=== PATIENT | male | born 1945 | race Caucasian/White ===

== ENCOUNTER 2018-04-22 17:29 | Inpatient (IN) | payer OTHER ==
--- NOTE | 2018-04-22 17:32 | PDOC ---
History of Present Illness - General Chief Complaint: Respiratory Stated Complaint: COUGH, EDEMA TO LEGS Time Seen by Provider: 04/22/18 17:30 History Source: Patient, Spouse ( present for interview.), Old Records, Primary Care Provider (Office note and EKG from Dr. Stroud's office.) Exam Limitations: No Limitations - History of Present Illness Initial Comments: 69 y/o male presenting to [facility] on referral from Dr. Hartman office (in same building) complaining of a three week history of shortness of breath, fatigue, and bilateral lower extremity swelling. Symptoms started just prior to leaving for a three week trip to [place]. First noticed symmetrical bilateral lower extremity swelling without pain or overlying skin lesions. States he began having difficulty laying flat at night while sleeping; started sleeping upright in bed. Became easily fatigable with minimal exertion. Endorses paroxysmal nocturnal dyspnea and HR consistently >90 bpm. Denies chest pain, fever, chills , or diaphoresis. Denies h/o of similar in the past. No prior cardiac history; Was last evaluated by a bee tender approx. 10 years ago; believes he had a normal stress test. Exercises regularly with biking and running. Endorses cough productive of green sputum. Took Ciprofloxacin, which was prescribed as "in case antibiotic" for trip. States the cough persisted but the green sputum production stopped. Returned from [facility] earlier today. Traveled to [facility], various parts of [facility], and [facility]. Was compliant with Mephaquin malaria prophylaxis. Received Yellow Fever vaccination. Did not seek medical attention while abroad because he did not want to leave the tour. Was evaluated by PCP prior to arrival to the ER. EKG obtained in clinic showed a new onset LBBB when compared to previous EKG dated 12 Jan 2016. PCP: Dr. Michael Stroud Social Hx: - EtoH: 1-2 drinks per night - Tobacco: Remote h/o of smoking. Approx. 10 pack years. - Street Drugs: Denies. Medical Hx: - Crohns Disease - Melanoma on L arm - Anemia, type unknown - GERD - Osteoporosis Surgical Hx: - Tonsillectomy Past History - Past Medical History Allergies/Adverse Reactions: Allergies Allergy/AdvReac Type Severity Reaction Status Date / Time Penicillins Allergy Mild Hives Verified 04/22/18 17:32 grass pollen-november Allergy Mild SNEEZING Uncoded 04/22/18 17:32 *RETIRED-02/12/12 Home Medications: Ambulatory Orders Calcium [Natural Calcium] 1,200 mg PO DAILY 01/05/15 Cholecalciferol (Vitamin D3) [Vitamin D] 3,000 unit PO DAILY 01/05/15 Famotidine [Pepcid] 40 mg PO DAILY 01/05/15 Loratadine [Claritin -] 10 mg PO DAILY 01/05/15 Cyanocobalamin [Vitamin B12 -] 1,000 mcg PO DAILY 04/12/16 Anemia: No Asthma: No Cancer: Yes (SKIN CANCER) Cardiac Disorders: No CVA: No COPD: No CHF: No Dementia: No Diabetes: No GI Disorders: Yes (CROHN'S DISEASE GERD) Disorders: No HTN: No Hypercholesterolemia: No Liver Disease: No Seizures: No Thyroid Disease: No - Surgical History Abdominal Surgery: No Appendectomy: No Cardiac Surgery: No Cholecystectomy: No Lung Surgery: No Neurologic Surgery: No Orthopedic Surgery: No - Suicide/Smoking/Psychosocial Hx Smoking History: Former smoker Have you smoked in the past 12 months: No Number of Cigarettes Smoked Daily: 0 If you are a former smoker, when did you quit?: 1975 Hx Alcohol Use: Yes Drug/Substance Use Hx: No Substance Use Type: Alcohol Hx Substance Use Treatment: No Review of Systems - Review of Systems Able to Perform ROS?: Yes Comments:: In addition to that documented in the HPI above, the additional ROS was obtained : Constitutional: Denies fevers or chills Eyes: Denies vision changes ENMT: Denies sore throat CV: Denies chest pain Resp: Per HPI GI: Denies vomiting or diarrhea : Denies painful urination MSK: Denies recent trauma Skin: Denies new rashes Neuro: Denies new numbness or tingling or weakness Endocrine: Denies polyuria Heme: Denies bleeding disorders *Physical Exam - Physical Exam Comments: Constitutional: Well-developed, well-nourished male in no acute distress or obvious discomfort. Found semi-fowlers in hospital bed. Alert and oriented x4. Answered all questions appropriately and completely. Speech was non-labored, non -pressured. HEENT: Normocephalic. No obvious external signs of trauma. Hearing grossly normal. No nasal discharge. Neck is supple, trachea is midline. JVD more pronounced on right side. Cardiovascular: Regular rate and regular rhythm. No murmur, rubs, clicks, or gallops. Peripheral pulses: Radial pulses full. Respiratory: Mildly tachypneic at rest. Breathing unlabored. Equal chest rise and fall. Clear to auscultation bilaterally. No stridor, no wheezing, no rhonchi. Gastrointestinal: abdomen is soft, non-tender, non-distended. No pulsatile masses. No fluid wave. No overlying skin lesions or obvious signs of trauma. Neuro: Alert and oriented. Moving all four extremities spontaneously. Skin: Warm and dry. 3+ pitting pretibial edema to knee bilaterally. No point tenderness or overlying skin lesions. No bruising, rashes. Psych: Affect: appropriate. Mood: normal. ED Treatment Course - LABORATORY CBC & Chemistry Diagram: 04/22/18 17:30 04/22/18 17:30 Medical Decision Making - Medical Decision Making *Reviewed vital signs, nursing notes, and prior visit documentation (if available). 69 y/o male complaining of orthopnea, paroxysmal nocturnal dyspnea, bilateral pretibial edema, and decreased exercise intolerance. No prior cardiac or clotting history. Afebrile. Vitals remarkable for borderline tachycardia; no hypertension. Physical exam as described above. Suspect acute CHF. Low suspicion for DVT/PE, cardiac arrhythmia, pneumonia, pericardial effusion. Will obtain CBC, CMP, BNP, Cardiac Profile, PT/INR, Mag, D-Dimer, EKG, and CXR to further evaluated. Ordered furosemide for symptom relief. Dr. Stroud requested bilateral lower extremity doppler U/S to evaluate for DVT. Ordered. Vascular U/S unremarkable for DVT. CXR revealed possible consolidation in left middle lobe as well as mild blunting of right and left costophrenic angles per ED wet read. Awaiting official radiology report. Ordered dose of Doxycycline for possible community acquired pneumonia. 04/22/18 19:12 Pt signed out to night attending. Lab and CXR results pending. *DC/Admit/Observation/Transfer Diagnosis at time of Disposition: Leg swelling - Discharge Dispostion Condition at time of disposition: Stable - Referrals Referrals: Michael Stroud MD [Primary Care Provider] - - Patient Instructions - Post Discharge Activity
[2018-04-22 17:39] VITALS: BMI 26.7
[2018-04-22] MEDS ORDERED: FUROSEMIDE 40 MG/4 ML INJECTABLE VIAL IVPUSH ONE (18:03)
[2018-04-22] MEDS ORDERED: FUROSEMIDE 40 MG/4 ML INJECTABLE VIAL ONE (18:46)
--- NOTE | 2018-04-22 18:46 | PDOC ---
Attending Attestation - Resident Resident Name: Nishant - ED Attending Attestation I have performed the following: I have examined & evaluated the patient, The case was reviewed & discussed with the resident, I agree w/resident's findings & plan, Exceptions are as noted - HPI HPI: 04/22/18 18:38 72 M with h/o Crohn's presenting with 3 weeks of lower extremity swelling and PAGE. Pt states that he just returned from a trip to [facility]. He states that while there, he caught an upper respiratory infection, and since then he has had progressively worsening PAGE and orthopnea. He also reports bilateral leg swelling for several weeks. Pt states the flight to [facility] was approx 15 hours. However, he noticed the swelling in his legs before the trip. Pt denies any F/ C. Denies any chest pain. Denies N/V. Denies diaphoresis. - Physicial Exam PE: 04/22/18 18:40 "GENERAL: Awake, alert, and fully oriented, in no acute distress. HEAD: No signs of trauma EYES: PERRLA, EOMI, sclera anicteric, conjunctiva clear ENT: Auricles normal inspection, hearing grossly normal, nares patent, oropharynx clear without exudates. Moist mucosa NECK: Nontender, no stepoffs, Normal ROM, supple, no lymphadenopathy, JVD, or masses LUNGS: Breath sounds equal, clear to auscultation bilaterally. No wheezes, and no crackles HEART: Regular rate and rhythm, normal S1 and S2, no murmurs, rubs or gallops ABDOMEN: Soft, nontender, normoactive bowel sounds. No guarding, no rebound. No masses EXTREMITIES: +2 PE BLE, symmetric legs, no palpable cords, no calf tenderness NEUROLOGICAL: Cranial nerves II through XII intact. 5/5 strength and sensation in all extremities, Normal speech, normal gait, normal cerebellar function SKIN: Warm, Dry, normal turgor, no rashes or lesions noted." - Medical Decision Making 04/22/18 18:41 72 M with PAGE and BLE swelling. Clinical concerning for CHF. Will need to evaluate for FL as well. Also consider PNA. Pt with recent plane flight to [facility] and BLE swelling, so will r/o PE with ddimer. However, pt reports that leg swelling occurred prior to his trip. - Labs, trop, BNP, ddimer - CXR - LE dopplers - Consider CTA chest 04/22/18 19:01 Dopplers negative EKG with new TWI in lateral leads. Pt denies chest pain. CXR with ? consolidation. Given cough and URI like symptoms, will empirically treat for CAP. Labs pending. Pt signed out to oncoming attending, pending labs, possible CTA to r/o PE, and admission to hospital.
[2018-04-22 18:54] LABS: BASO % 0.4 % (0-2.0); EOS % 2.9 % (0-4.5); HEMATOCRIT 36.9 % (35.4-49); HEMOGLOBIN 11.9 GM/dl (11.7-16.9); LYMPH % 9.9 % (8-40); MCH 29.4 pg (25.7-33.7); MCHC 32.3 g/dl (32.0-35.9); MEAN CELL VOLUME 91.2 fl (80-96); MEAN PLT VOLUME 11.1 fl (7.5-11.1); MONO % 8.7 % (3.8-10.2); NEUT % 78.1 % (42.8-82.8); PLATELET COUNT 262 K/MM3 (134-434); RBC 4.05 M/mm3 (4.00-5.60); RDW 14.8 % (11.9-15.9); WHITE BLOOD COUNT 9.8 K/mm3 (4.0-10.8)
[2018-04-22 18:59] LABS: INR 1.21 (0.82-1.09); PROTHROMBIN TIME (PATIENT) 13.5 SEC (10.2-13.0)
[2018-04-22] MEDS ORDERED: DOXYCYCLINE HYCLATE 100 MG CAPSULE PO ONE ×2 (18:59→19:20)
[2018-04-22 19:10] LABS: ALBUMIN 2.9 g/dl (3.5-5.0); ALK PHOS 63 U/L (32-92); ANION GAP 6 MMOL/L (8-16); BLOOD UREA NITROGEN 20 mg/dl (7-18); CALCIUM 8.2 mg/dl (8.4-10.2); CHLORIDE 108 mmol/L (98-107); CO2 22 mmol/L (22-28); CREATININE 1.3 mg/dl (0.6-1.3); GLUCOSE,RANDOM 93 mg/dl (74-106); MAGNESIUM 1.7 mg/dL (1.8-2.4); POTASSIUM 4.1 mmol/L (3.5-5.1); SGOT/AST 44 U/L (10-42); SGPT/ALT 64 U/L (10-40); SODIUM 136 mmol/L (136-145); TOT PROT 5.5 g/dl (6.4-8.3)
--- NOTE | 2018-04-22 19:50 | PDOC ---
*Physical Exam - Vital Signs Last Vital Signs Temp Pulse Resp BP Pulse Ox 97.4 F L 95 H 20 121/82 97 04/22/18 17:30 04/22/18 17:30 04/22/18 17:30 04/22/18 17:30 04/22/18 17:30 ED Treatment Course - LABORATORY CBC & Chemistry Diagram: 04/22/18 17:30 04/22/18 17:30 - ADDITIONAL ORDERS Additional order review: Laboratory Results 04/22/18 04/22/18 04/22/18 17:30 17:30 17:30 PT with INR INR D-Dimer 926 H Sodium Potassium Chloride Carbon Dioxide Anion Gap BUN Creatinine Creat Clearance w eGFR Random Glucose Calcium Magnesium Total Bilirubin AST ALT Alkaline Phosphatase Creatine Kinase 162 Creatine Kinase Index 3.8 CK-MB (CK-2) 6.3 H Troponin I 0.04 D B-Natriuretic Peptide Total Protein Albumin 04/22/18 04/22/18 04/22/18 17:30 17:30 17:30 PT with INR 13.5 H INR 1.21 D-Dimer Sodium 136 Potassium 4.1 Chloride 108 H Carbon Dioxide 22 Anion Gap 6 L BUN 20 H Creatinine 1.3 Creat Clearance w eGFR 54.26 Random Glucose 93 D Calcium 8.2 L Magnesium 1.7 L Total Bilirubin 1.0 AST 44 H D ALT 64 H D Alkaline Phosphatase 63 Creatine Kinase Creatine Kinase Index CK-MB (CK-2) Troponin I B-Natriuretic Peptide 8146.3 H Total Protein 5.5 L Albumin 2.9 L 04/22/18 17:30 RBC 4.05 MCV 91.2 MCHC 32.3 RDW 14.8 D MPV 11.1 Neutrophils % 78.1 Lymphocytes % 9.9 D Monocytes % 8.7 Eosinophils % 2.9 D Basophils % 0.4 - Medications Given in the ED: ED Medications Discontinued Medications Generic Name Dose Route Start Last Admin Trade Name Freq PRN Reason Stop Dose Admin Doxycycline Hyclate 100 mg 04/22/18 18:59 04/22/18 19:27 Vibramycin - PO 04/22/18 19:00 100 mg ONCE ONE Administration Furosemide 40 mg 04/22/18 18:03 04/22/18 19:00 Lasix Injection - IVPUSH 04/22/18 18:04 40 mg ONCE ONE Administration Progress Note - Progress Note Progress Note: Care of this patient was transferred to nm from Dr. Clements at 1900 hrs. Patient is a 72-year-old male who recently returned from travels in [place] with dyspnea and shortness of breath. Patient's chest x-ray does show an infiltrate as well as some CHF. Patient's d-dimer and BNP is still pending. 19:45 Patient's d-dimer was 920 which is mildly elevated normal for his age is 720. However given the patient's underlying lung issues this most likely is secondary to that. Patient's medial and is elevated with a borderline creatinine I do not want to subject his kidneys to a dye load as we gave him Lasix which she is given a further dehydrate him elevate his BUNs even more. Patient's BNP was over 1800. Patient was given Lasix here in the ED Patient will be admitted to an inpatient bed under the hospitalist service. *DC/Admit/Observation/Transfer Diagnosis at time of Disposition: Leg swelling CHF (congestive heart failure) Qualifiers: Heart failure type: unspecified Heart failure chronicity: unspecified Qualified Code(s): I50.9 - Heart failure, unspecified Pneumonia Qualifiers: Pneumonia type: due to unspecified organism Laterality: left Lung location: lower lobe of lung Qualified Code(s): J18.1 - Lobar pneumonia, unspecified organism - Discharge Dispostion Condition at time of disposition: Stable Decision to Admit order: Yes - Referrals Referrals: Michael Stroud MD [Primary Care Provider] - - Patient Instructions - Post Discharge Activity
[2018-04-22] MEDS ORDERED: MAGNESIUM 1GM/D5W - 2 GM/200 ML IVPB IVPB ONE (20:24)
[2018-04-22] MEDS ORDERED: SODIUM CHLORIDE 500 ML IV STA (20:26)
[2018-04-22] MEDS ORDERED: MAGNESIUM SULF 50% (8.12 MEQ/2 ML-1 GM VIAL) IVPB ONE (20:30)
[2018-04-22] MEDS: HEPARIN NA (PORCINE) 5,000 UNITS/ML 1ML VIAL SQ SCH (22:42)
--- NOTE | 2018-04-22 23:49 | HP ---
CHIEF COMPLAINT: SOB, Cough, Fatigue, Lower Extremity Swelling PCP: Dr. Stroud HISTORY OF PRESENT ILLNESS: This is a 72 y/o man with a past medical history of Crohn's Disease, GERD, Anemia, Osteoporosis, Melanoma. Who presents to the ED sent in by his PMD for SOB, PAGE, orthopnea, fatigue, and LE edema x 3 weeks. Patient reports returning from [place] today. He reports worsening SOB and LE edema prompting him to go see his PMD. Patient reports needing to sit in a "tripod" position to improve his breathing, as well as the inability lying supine. Patient reports having a productive cough with green sputum that has resolved. Patient took ciprofloxacin prophylactically during his trip in [place]. He was vaccinated for Yellow Fever and took Mephaquin prophylactically for Malaria. Patient denies fever, chills, dizziness, CP, palpitations, AP, N/V/D, constipation, dysuria. ER course was notable for: (1) Chest Xray- left lung mass, atelectasis at the bases, CT is strongly recommended (2) BNP 8143 (3) D-Dimer 926 (4) EKG- NSR with RBBB, LVH, cannot r/o Septal Infarct, age undetermined (5) Mg 1.7 Recent Travel: +18hr flights from [place] PAST MEDICAL HISTORY: See HPI PAST SURGICAL HISTORY: Tonsillectomy Social History: SmokinPPD x 20+yrs, quit in 1974 Alcohol: 1 glass wine with dinner Drugs: None Lives with spouse, retired former [employer] Family History: Father- HTN, at age 92.5 Mother- Crohn's at age 86 Adult Children x3- Crohn's symptoms Allergies Penicillins Allergy (Mild, Verified 04/22/18 17:32) Hives grass pollen-november *RETIRED-02/12/12 Allergy (Mild, Uncoded 04/22/18 17:32) SNEEZING HOME MEDICATIONS: Home Medications Medication Instructions Recorded Calcium [Natural Calcium] 1,200 mg PO DAILY 01/05/15 Cholecalciferol (Vitamin D3) 3,000 unit PO DAILY 01/05/15 [Vitamin D] Famotidine [Pepcid] 40 mg PO DAILY 01/05/15 Loratadine [Claritin -] 10 mg PO DAILY 01/05/15 Cyanocobalamin [Vitamin B12 -] 1,000 mcg PO DAILY 04/12/16 REVIEW OF SYSTEMS CONSTITUTIONAL: fatigue Absent: fever, chills, diaphoresis, generalized weakness, malaise, loss of appetite, weight change HEENT: Absent: rhinorrhea, nasal congestion, throat pain, throat swelling, difficulty swallowing, mouth swelling, ear pain, eye pain, visual changes CARDIOVASCULAR: peripheral edema Absent: chest pain, syncope, palpitations, irregular heart rate, lightheadedness RESPIRATORY: cough, shortness of breath, dyspnea with exertion, orthopnea, Absent: wheezing, stridor, hemoptysis GASTROINTESTINAL: Absent: abdominal pain, abdominal distension, nausea, vomiting, diarrhea, constipation, melena, hematochezia GENITOURINARY: Absent: dysuria, frequency, urgency, hesitancy, hematuria, flank pain, genital pain MUSCULOSKELETAL: Absent: myalgia, arthralgia, joint swelling, back pain, neck pain SKIN: Absent: rash, itching, pallor HEMATOLOGIC/IMMUNOLOGIC: Absent: easy bleeding, easy bruising, lymphadenopathy, frequent infections ENDOCRINE: Absent: unexplained weight gain, unexplained weight loss, heat intolerance, cold intolerance NEUROLOGIC: Absent: headache, focal weakness or paresthesias, dizziness, unsteady gait, seizure, mental status changes, bladder or bowel incontinence PSYCHIATRIC: Absent: anxiety, depression, suicidal or homicidal ideation, hallucinations. PHYSICAL EXAMINATION Vital Signs - 24 hr 04/22/18 04/22/18 04/22/18 17:30 20:10 21:03 Temperature 97.4 F L 97.8 F 97.5 F L Pulse Rate 95 H 77 Pulse Rate [ 91 H Left Apical] Respiratory 20 18 18 Rate Blood Pressure 121/82 95/59 L Blood Pressure 138/56 L [Right Arm] O2 Sat by Pulse 97 97 95 Oximetry (%) GENERAL: Awake, alert, and fully oriented, in no acute distress. HEAD: Normal with no signs of trauma. EYES: Pupils equal, round and reactive to light, extraocular movements intact, sclera anicteric, conjunctiva clear. No lid lag. EARS, NOSE, THROAT: Ears normal, nares patent, oropharynx clear without exudates. Moist mucous membranes. NECK: Normal range of motion, supple without lymphadenopathy, JVD, or masses. LUNGS: Breath sounds diminished at bases. No wheezes, and no crackles. No accessory muscle use. HEART: Regular rate and rhythm, normal S1 and S2 without murmur, rub or gallop. ABDOMEN: Soft, nontender, not distended, normoactive bowel sounds, no guarding, no rebound, no masses. No hepatomegaly or splenomegaly. MUSCULOSKELETAL: Normal range of motion at all joints. No bony deformities or tenderness. No CVA tenderness. UPPER EXTREMITIES: 2+ pulses, warm, well-perfused. No cyanosis. No clubbing. No peripheral edema. LOWER EXTREMITIES: +3 pitting to B/L peripheral edema. 2+ pulses, warm, well- perfused. No calf tenderness. NEUROLOGICAL: Cranial nerves II-XII intact. Normal speech. Gait not observed. PSYCHIATRIC: Cooperative. Good eye contact. Appropriate mood and affect. SKIN: Warm, dry, normal turgor, no rashes or lesions noted, normal capillary refill. Laboratory Results - last 24 hr 04/22/18 04/22/18 04/22/18 17:30 17:30 17:30 WBC 9.8 RBC 4.05 Hgb 11.9 Hct 36.9 MCV 91.2 MCH 29.4 MCHC 32.3 RDW 14.8 D Plt Count 262 MPV 11.1 Absolute Neuts (auto) 7.7 Neutrophils % 78.1 Lymphocytes % 9.9 D Monocytes % 8.7 Eosinophils % 2.9 D Basophils % 0.4 PT with INR 13.5 H INR 1.21 D-Dimer Sodium 136 Potassium 4.1 Chloride 108 H Carbon Dioxide 22 Anion Gap 6 L BUN 20 H Creatinine 1.3 Creat Clearance w eGFR 54.26 Random Glucose 93 D Calcium 8.2 L Magnesium 1.7 L Total Bilirubin 1.0 AST 44 H D ALT 64 H D Alkaline Phosphatase 63 Creatine Kinase Creatine Kinase Index CK-MB (CK-2) Troponin I B-Natriuretic Peptide Total Protein 5.5 L Albumin 2.9 L 04/22/18 04/22/18 04/22/18 17:30 17:30 17:30 WBC RBC Hgb Hct MCV MCH MCHC RDW Plt Count MPV Absolute Neuts (auto) Neutrophils % Lymphocytes % Monocytes % Eosinophils % Basophils % PT with INR INR D-Dimer Sodium Potassium Chloride Carbon Dioxide Anion Gap BUN Creatinine Creat Clearance w eGFR Random Glucose Calcium Magnesium Total Bilirubin AST ALT Alkaline Phosphatase Creatine Kinase 162 Creatine Kinase Index 3.8 CK-MB (CK-2) 6.3 H Troponin I 0.04 D B-Natriuretic Peptide 8146.3 H Total Protein Albumin 04/22/18 17:30 WBC RBC Hgb Hct MCV MCH MCHC RDW Plt Count MPV Absolute Neuts (auto) Neutrophils % Lymphocytes % Monocytes % Eosinophils % Basophils % PT with INR INR D-Dimer 926 H Sodium Potassium Chloride Carbon Dioxide Anion Gap BUN Creatinine Creat Clearance w eGFR Random Glucose Calcium Magnesium Total Bilirubin AST ALT Alkaline Phosphatase Creatine Kinase Creatine Kinase Index CK-MB (CK-2) Troponin I B-Natriuretic Peptide Total Protein Albumin ASSESSMENT/PLAN: 72 y/o man PMHx of: Crohn's, Anemia, GERD, Osteoporosis, Melanoma (L-arm). Admitted for Acute CHF, Pneumonia, EKG changes for further evalaution of their emergent condition. Plan: FEN Repleted Mg, monitor with lytes in am Regular Diet as tolerated DVT ppx OOB TEDs Heparin SQ Dispo: Requires Inpatient Care Problem List - Problem (1) Acute CHF Assessment/Plan: Likely secondary to Pneumonia vs PE vs Malignancy Continue cardiac monitoring BNP 8800 Lasix given in ED, will continue Appreciate Cardiology consult Chest Xray report- left lung mass, pleural reaction and atelectasis at the bases Will order CTA EKG- RBBB, LVH, cannot r/o septal infarct, age undetermined, TWI, consider lateral ischemia Strict INOs Daily weights Monitor CBC, BMP Code(s): I50.9 - HEART FAILURE, UNSPECIFIED (2) Pneumonia Assessment/Plan: CURB65 Score 2 Chest Xray image patchy infiltrate to LLL, report read as left lung mass, atelectasis at bases no leukocytosis, no neutrophilia likely secondary to recent fluroquinolone use Blood Cultures-pending Doxycycline give in ED, will continue Appreciate ID consult Will do CTA for f/u left large mass, r/o PE Monitor CBC,BMP Monitor vitals Urine Legionella Tylenol prn Code(s): J18.9 - PNEUMONIA, UNSPECIFIED ORGANISM Qualifiers: Pneumonia type: due to unspecified organism Laterality: left Lung location: lower lobe of lung Qualified Code(s): J18.1 - Lobar pneumonia, unspecified organism (3) Abnormality of lung on chest x-ray Assessment/Plan: Chest Xray- large lung mass Concerning for Malignancy, given patient's Tobacco hx 1PPD x 25yrs CTA- pending Code(s): R91.8 - OTHER NONSPECIFIC ABNORMAL FINDING OF LUNG FIELD (4) Elevated d-dimer Assessment/Plan: r/o PE vs Malignancy PERC Rule 1 Wells Score 0 Chest Xray- reviewed CTA pending Monitor vitals Code(s): R79.89 - OTHER SPECIFIED ABNORMAL FINDINGS OF BLOOD CHEMISTRY (5) Hypomagnesemia Assessment/Plan: Possibly due to excessive Calcium intake vs Malabsorption Repleted with Mag Sulfate IV Repeat Mg level in am EKG showed RBBB, LVH, with TWI lead 1, aVL Continue cardiac monitoring Will decrease patient's home calcium dosage Code(s): E83.42 - HYPOMAGNESEMIA (6) Crohn's disease Assessment/Plan: Stable, no active flare Will continue to monitor and treat with interventions accordingly Code(s): K50.90 - CROHN'S DISEASE, UNSPECIFIED, WITHOUT COMPLICATIONS Visit type - Emergency Visit Emergency Visit: Yes ED Registration Date: 04/22/18 Care time: The patient presented to the Emergency Department on the above date and was hospitalized for further evaluation of their emergent condition. - New Patient This patient is new to me today: Yes Date on this admission: 04/22/18 - Critical Care Critical Care patient: No
[2018-04-23 07:44] LABS: URINE APPEARANCE Clear; URINE BILIRUBIN Negative (NEGATIVE); URINE COLOR Amber; URINE GLUCOSE (UA) Negative (NEGATIVE); URINE KETONE Negative (NEGATIVE); URINE LEUK ESTERASE Negative (NEGATIVE); URINE NITRITE Negative (NEGATIVE); URINE PROTEIN Trace (NEGATIVE); URINE UROBILINOGEN 0.2 (0.2-1.0)
[2018-04-23 08:45] LABS: BASO % 0.4 % (0-2.0); EOS % 2.3 % (0-4.5); HEMATOCRIT 35.7 % (35.4-49); HEMOGLOBIN 11.8 GM/dl (11.7-16.9); LYMPH % 12.1 % (8-40); MCH 30.1 pg (25.7-33.7); MCHC 32.9 g/dl (32.0-35.9); MEAN CELL VOLUME 91.4 fl (80-96); MEAN PLT VOLUME 10.7 fl (7.5-11.1); MONO % 8.7 % (3.8-10.2); NEUT % 76.5 % (42.8-82.8); PLATELET COUNT 247 K/MM3 (134-434); RBC 3.91 M/mm3 (4.00-5.60); RDW 14.7 % (11.9-15.9); WHITE BLOOD COUNT 8.1 K/mm3 (4.0-10.8)
[2018-04-23] MEDS ORDERED: DOXYCYCLINE HYCLATE 100 MG VIAL ONE (09:56)
[2018-04-23] MEDS ORDERED: FUROSEMIDE 40 MG/4 ML INJECTABLE VIAL IVPUSH SCH (10:00)
[2018-04-23] MEDS ORDERED: DOXYCYCLINE INJECTION 100 MG in DEXTROSE 5%-WATER - 100 ML IVPB SCH (10:00)
[2018-04-23] MEDS ORDERED: DEXTROSE 5%-WATER 100 ML IVPB ONE (10:00)
[2018-04-23] MEDS ORDERED: CYANOCOBALAMIN 1,000 MCG TABLET (FP) PO SCH (10:00)
[2018-04-23] MEDS ORDERED: CALCIUM 500MG/VIT-D 200 UNITS COMBO TABLET (FP) PO SCH (10:00)
[2018-04-23] MEDS ORDERED: DOXYCYCLINE INJECTION 100 MG in DEXTROSE 5%-WATER 100 ML IVPB SCH ×3 (10:00→22:00)
[2018-04-23] MEDS ORDERED: LORATADINE 10 MG TABLET PO SCH (10:00)
--- NOTE | 2018-04-23 10:14 | EKG ---
Test Reason : Blood Pressure : / mmHG Vent. Rate : 091 BPM Atrial Rate : 091 BPM P-R Int : 154 ms QRS Dur : 154 ms QT Int : 430 ms P-R-T Axes : 050 -42 122 degrees QTc Int : 528 ms SINUS RHYTHM WITH PREMATURE SUPRAVENTRICULAR COMPLEXES AND WITH OCCASIONAL PREMATURE VENTRICULAR COMPLEXES POSSIBLE LEFT ATRIAL ENLARGEMENT LEFT AXIS DEVIATION RIGHT BUNDLE BRANCH BLOCK LEFT VENTRICULAR HYPERTROPHY CANNOT RULE OUT SEPTAL INFARCT , AGE UNDETERMINED T WAVE ABNORMALITY, CONSIDER LATERAL ISCHEMIA ABNORMAL ECG NO PREVIOUS ECGS AVAILABLE Confirmed by JOELLE TRACEY, GENARO ([id number]) on 04/23/2018 10:14:25 AM Referred By: Yang Echeverria Confirmed By:GENARO LAI MD
--- NOTE | 2018-04-23 10:45 | CON.CARD ---
Consult Consult Specialty:: Cardiology - History of Present Illness Chief Complaint: sob/leg edema History of Present Illness: This is a 72 y/o man with a past medical history of Crohn's Disease, GERD, Anemia, Osteoporosis, Melanoma. Who presents to the ED sent in by his PMD for SOB, PAGE, orthopnea, fatigue, and LE edema x 3 weeks. Patient reports returning from [place] today. He reports worsening SOB and LE edema prompting him to go see his PMD. Patient reports needing to sit in a "tripod" position to improve his breathing, as well as the inability lying supine. Patient reports having a productive cough with green sputum that has resolved. Patient took ciprofloxacin prophylactically during his trip in [place]. He was vaccinated for Yellow Fever and took Mephaquin prophylactically for Malaria. Patient denies fever, chills, dizziness, CP, palpitations, AP, N/V/D, constipation, dysuria. ER course was notable for: (1) Chest Xray- left lung mass, atelectasis at the bases, CT is strongly recommended (2) BNP 8143 (3) D-Dimer 926 (4) EKG- NSR with RBBB, LVH, cannot r/o Septal Infarct, age undetermined (5) Mg 1.7 - History Source History Provided By: Patient, Medical Record - Alcohol/Substance Use Hx Alcohol Use: Yes (5 DAYS A WEEK) - Smoking History Smoking history: Former smoker Have you smoked in the past 12 months: No Aproximately how many cigarettes per day: 0 If you are a former smoker, when did you quit?: 1974 Home Medications - Allergies Allergies/Adverse Reactions: Allergies Allergy/AdvReac Type Severity Reaction Status Date / Time Penicillins Allergy Mild Hives Verified 04/22/18 17:32 grass pollen-november Allergy Mild SNEEZING Uncoded 04/22/18 17:32 *RETIRED-02/12/12 - Home Medications Home Medications: Ambulatory Orders Calcium [Natural Calcium] 1,200 mg PO DAILY 01/05/15 Cholecalciferol (Vitamin D3) [Vitamin D] 3,000 unit PO DAILY 01/05/15 Famotidine [Pepcid] 40 mg PO DAILY 01/05/15 Loratadine [Claritin -] 10 mg PO DAILY 01/05/15 Cyanocobalamin [Vitamin B12 -] 1,000 mcg PO DAILY 04/12/16 Review of Systems - Review of Systems Constitutional: reports: No Symptoms Eyes: reports: No Symptoms HENT: reports: No Symptoms Neck: reports: No Symptoms Cardiovascular: reports: Edema, Shortness of Breath, Other (orthopnea) Gastrointestinal: reports: No Symptoms Genitourinary: reports: No Symptoms Breasts: reports: No Symptoms Reported Musculoskeletal: reports: No Symptoms Integumentary: reports: No Symptoms Neurological: reports: No Symptoms Endocrine: reports: No Symptoms Hematology/Lymphatic: reports: No Symptoms Psychiatric: reports: No Symptoms Vital Signs: Vital Signs Temperature 97.6 F 04/23/18 09:59 Pulse Rate 90 04/23/18 09:59 Respiratory Rate 17 04/23/18 09:59 Blood Pressure 122/80 04/23/18 09:59 O2 Sat by Pulse Oximetry (%) 97 04/23/18 07:05 Constitutional: Yes: Well Nourished, No Distress, Calm Eyes: Yes: WNL, Conjunctiva Clear, EOM Intact HENT: Yes: WNL, Atraumatic, Normocephalic Neck: Yes: WNL, Supple, Trachea Midline Respiratory: Yes: WNL, Regular, CTA Bilaterally Gastrointestinal: Yes: WNL, Normal Bowel Sounds Renal/: Yes: WNL Cardiovascular: Yes: WNL, Regular Rate and Rhythm Heart Sounds: Yes: S1, S2 Musculoskeletal: Yes: WNL Extremities: Yes: WNL Edema: Yes Edema: LLE: 2+, RLE: 2+ Integumentary: Yes: WNL Neurological: Yes: WNL, Alert, Oriented ...Motor Strength: WNL Psychiatric: Yes: WNL, Alert, Oriented - Other Data Labs, Other Data: CBC, BMP 04/23/18 08:05 04/22/18 17:30 INR, PTT INR 1.21 (0.82-1.09) 04/22/18 17:30 Troponin, BNP 04/22/18 04/22/18 04/23/18 17:30 17:30 00:01 Troponin I 0.04 D Cancelled B-Natriuretic Peptide 8146.3 H 04/23/18 04/23/18 00:01 08:05 Troponin I 0.04 0.03 B-Natriuretic Peptide Troponin, BNP 04/22/18 04/22/18 04/23/18 17:30 17:30 00:01 Troponin I 0.04 D Cancelled B-Natriuretic Peptide 8146.3 H 04/23/18 04/23/18 00:01 08:05 Troponin I 0.04 0.03 B-Natriuretic Peptide Imaging - Results Chest X-ray: Image Reviewed (cm pleural efusion increased markings, lsided infiltrate) EKG: Image Reviewed (sr lvh rbbb l axis rep abn) Problem List - Problems (1) Abnormality of lung on chest x-ray Code(s): R91.8 - OTHER NONSPECIFIC ABNORMAL FINDING OF LUNG FIELD (2) Acute CHF Code(s): I50.9 - HEART FAILURE, UNSPECIFIED (3) CHF (congestive heart failure) Code(s): I50.9 - HEART FAILURE, UNSPECIFIED Qualifiers: Heart failure type: unspecified Heart failure chronicity: unspecified Qualified Code(s): I50.9 - Heart failure, unspecified (4) Crohn's disease Code(s): K50.90 - CROHN'S DISEASE, UNSPECIFIED, WITHOUT COMPLICATIONS (5) Elevated d-dimer Code(s): R79.89 - OTHER SPECIFIED ABNORMAL FINDINGS OF BLOOD CHEMISTRY (6) Hypomagnesemia Code(s): E83.42 - HYPOMAGNESEMIA (7) Leg swelling Code(s): M79.89 - OTHER SPECIFIED SOFT TISSUE DISORDERS (8) Pneumonia Code(s): J18.9 - PNEUMONIA, UNSPECIFIED ORGANISM Qualifiers: Pneumonia type: due to unspecified organism Laterality: left Lung location: lower lobe of lung Qualified Code(s): J18.1 - Lobar pneumonia, unspecified organism (9) Right upper quadrant abdominal pain Code(s): R10.11 - RIGHT UPPER QUADRANT PAIN Assessment/Plan chf systolic acute on chronic ef=10% severe MR and TR?cannot exclude apical thrombus NSVT - 9 beats Patient reports remote h/o HTN - not treated. States his symptoms page, dependent leg edema started slowly about 12 months ago causing him to "slow down a bit" His symptoms got significantly worse during his safari trip in [place], where he drank "plenty of fluid " and had unrestricted salt diet. Doubt PNA - no WBC no fevers Plan; Transfer to [facility] telemetry IV heparin increase IV lasix to BID [id number] qd Lisinopril 2.5 QD Aldacton 25 QD ABX as per id check mg and K Coreg 3.125 BID when acute decompensation of CHF resolves will need c.cath when diuresed and able to stay in supine position and when cleared by ID -hopefuly c. cath within next 48 hrs. viral myocarditis is in differential and to be addressed after c. cath. Dilation of LV and severe MR TR as well as symptoms (albeit mild) starting a year ago suggest more chronic proces HHD vs ischemic CMP. check lipids prognosis is guarded d/w patient and his d/w dr Blackman and Hugo
[2018-04-23] MEDS: HEPARIN NA (PORCINE) 5,000 UNITS/ML 1ML VIAL SQ SCH (10:58)
--- NOTE | 2018-04-23 11:05 | PN ---
Physical Exam: SUBJECTIVE: Patient seen and examined at bedside. SOB. PCP: Dr. Stroud OBJECTIVE: Vital Signs Period Temp Pulse Resp BP Sys/Hobbs Pulse Ox Last 24 Hr 97.4 F-98.7 F 66-96 17-20 95-138/56-82 95-99 GENERAL: The patient is awake, alert, and fully oriented; SOB with speaking LUNGS: CTA HEART: Regular rate and rhythm, S1, S2 ABDOMEN: Soft, nontender, nondistended LOWER EXTREMITIES: 2+ bilateral edema, warm, well-perfused NEUROLOGICAL: Cranial nerves II through XII grossly intact. Normal speech Laboratory Results - last 24 hr 04/22/18 04/22/18 04/22/18 17:30 17:30 17:30 WBC 9.8 RBC 4.05 Hgb 11.9 Hct 36.9 MCV 91.2 MCH 29.4 MCHC 32.3 RDW 14.8 D Plt Count 262 MPV 11.1 Absolute Neuts (auto) 7.7 Neutrophils % 78.1 Lymphocytes % 9.9 D Monocytes % 8.7 Eosinophils % 2.9 D Basophils % 0.4 PT with INR 13.5 H INR 1.21 D-Dimer Sodium 136 Potassium 4.1 Chloride 108 H Carbon Dioxide 22 Anion Gap 6 L BUN 20 H Creatinine 1.3 Creat Clearance w eGFR 54.26 Random Glucose 93 D Calcium 8.2 L Magnesium 1.7 L Total Bilirubin 1.0 AST 44 H D ALT 64 H D Alkaline Phosphatase 63 Creatine Kinase Creatine Kinase Index CK-MB (CK-2) Troponin I B-Natriuretic Peptide Total Protein 5.5 L Albumin 2.9 L Urine Color Urine Appearance Urine pH Ur Specific [place] Urine Protein Urine Glucose (UA) Urine Ketones Urine Blood Urine Nitrite Urine Bilirubin Urine Urobilinogen Ur Leukocyte Esterase 04/22/18 04/22/18 04/22/18 17:30 17:30 17:30 WBC RBC Hgb Hct MCV MCH MCHC RDW Plt Count MPV Absolute Neuts (auto) Neutrophils % Lymphocytes % Monocytes % Eosinophils % Basophils % PT with INR INR D-Dimer Sodium Potassium Chloride Carbon Dioxide Anion Gap BUN Creatinine Creat Clearance w eGFR Random Glucose Calcium Magnesium Total Bilirubin AST ALT Alkaline Phosphatase Creatine Kinase 162 Creatine Kinase Index 3.8 CK-MB (CK-2) 6.3 H Troponin I 0.04 D B-Natriuretic Peptide 8146.3 H Total Protein Albumin Urine Color Urine Appearance Urine pH Ur Specific [place] Urine Protein Urine Glucose (UA) Urine Ketones Urine Blood Urine Nitrite Urine Bilirubin Urine Urobilinogen Ur Leukocyte Esterase 04/22/18 04/23/18 04/23/18 17:30 00:01 00:01 WBC RBC Hgb Hct MCV MCH MCHC RDW Plt Count MPV Absolute Neuts (auto) Neutrophils % Lymphocytes % Monocytes % Eosinophils % Basophils % PT with INR INR D-Dimer 926 H Sodium Potassium Chloride Carbon Dioxide Anion Gap BUN Creatinine Creat Clearance w eGFR Random Glucose Calcium Magnesium Total Bilirubin AST ALT Alkaline Phosphatase Creatine Kinase Creatine Kinase Index CK-MB (CK-2) Troponin I Cancelled 0.04 B-Natriuretic Peptide Total Protein Albumin Urine Color Urine Appearance Urine pH Ur Specific [place] Urine Protein Urine Glucose (UA) Urine Ketones Urine Blood Urine Nitrite Urine Bilirubin Urine Urobilinogen Ur Leukocyte Esterase 04/23/18 04/23/18 04/23/18 07:30 08:05 08:05 WBC 8.1 RBC 3.91 L Hgb 11.8 Hct 35.7 MCV 91.4 MCH 30.1 MCHC 32.9 RDW 14.7 Plt Count 247 MPV 10.7 Absolute Neuts (auto) 6.2 Neutrophils % 76.5 Lymphocytes % 12.1 D Monocytes % 8.7 Eosinophils % 2.3 Basophils % 0.4 PT with INR INR D-Dimer Sodium Potassium Chloride Carbon Dioxide Anion Gap BUN Creatinine Creat Clearance w eGFR Random Glucose Calcium Magnesium Total Bilirubin AST ALT Alkaline Phosphatase Creatine Kinase Creatine Kinase Index CK-MB (CK-2) Troponin I 0.03 B-Natriuretic Peptide Total Protein Albumin Urine Color Ivana Urine Appearance Clear Urine pH 5.0 Ur Specific [place] 1.020 Urine Protein Trace Urine Glucose (UA) Negative Urine Ketones Negative Urine Blood Negative Urine Nitrite Negative Urine Bilirubin Negative Urine Urobilinogen 0.2 Ur Leukocyte Esterase Negative 04/23/18 08:05 WBC RBC Hgb Hct MCV MCH MCHC RDW Plt Count MPV Absolute Neuts (auto) Neutrophils % Lymphocytes % Monocytes % Eosinophils % Basophils % PT with INR INR D-Dimer Sodium Potassium Chloride Carbon Dioxide Anion Gap BUN Creatinine Creat Clearance w eGFR Random Glucose Calcium Magnesium Total Bilirubin AST ALT Alkaline Phosphatase Creatine Kinase 130 Creatine Kinase Index CK-MB (CK-2) Troponin I B-Natriuretic Peptide Total Protein Albumin Urine Color Urine Appearance Urine pH Ur Specific [place] Urine Protein Urine Glucose (UA) Urine Ketones Urine Blood Urine Nitrite Urine Bilirubin Urine Urobilinogen Ur Leukocyte Esterase Active Medications Generic Name Dose Route Start Last Admin Trade Name Cynthia PRN Reason Stop Dose Admin Calcium Carbonate/Cholecalciferol 1 tab 04/23/18 10:00 04/23/18 10:56 Os-Joao 500+D - PO 1 tab DAILY THIAGO Administration Cyanocobalamin 1,000 mcg 04/23/18 10:00 04/23/18 10:56 Vitamin B12 - PO 1,000 mcg DAILY THIAGO Administration Famotidine 20 mg 04/23/18 18:00 Pepcid - PO DAILY@1800 THIAGO Furosemide 40 mg 04/23/18 10:00 04/23/18 10:56 Lasix Injection - IVPUSH 40 mg DAILY THIAGO Administration Heparin Sodium (Porcine) 5,000 unit 04/22/18 22:00 04/23/18 10:58 Heparin - SQ 5,000 unit BID THIAGO Administration Doxycycline Hyclate 100 mg/ 100 mls @ 100 mls/hr 04/23/18 10:00 04/23/18 10: 57 Dextrose IVPB 100 mls/hr BID THIAGO Administration Loratadine 10 mg 04/23/18 10:00 04/23/18 10:57 Claritin - PO 10 mg DAILY THIAGO Administration ASSESSMENT/PLAN 72 year-old male with a PMH significant for Crohn's disease, chronic anemia, GERD, OA, and left arm melanoma (remote). No previous cardiac history. Became symptomatic 3 weeks ago while in [place], decided to continue on his trip and did not seek medical attention. Severe, decompensated biventricular systolic heart failure --Echo: LV severely reduced; severe global, apical, apical septal wall, apical lateral wall, apical anterior wall akinesis; cannot r/o thrombi; RV moderately reduced; BLAE; severe MR; moderate TR; moderae AI; pleural effusion --CT: moderate bilateral pleural effusions --Lasix IV 40mg x 2 doses given; heparin drip started; lisinopril 2.5mg x 1 given; ASA 81mg x 1 --Mg 2.1, give additional 1g per cardiology --consider central line access --Dr. Swanson at bedside --transfer to ICU/telemetry Bilateral pneumonia --seen on CT chest --ceftriaxone, doxycycline --avoid quinolone and macrolides with prolonged QT Crohn's disease --not on regular medication --stable Visit type - Emergency Visit Emergency Visit: Yes ED Registration Date: 04/22/18 Care time: The patient presented to the Emergency Department on the above date and was hospitalized for further evaluation of their emergent condition. - New Patient This patient is new to me today: Yes Date on this admission: 04/23/18 - Critical Care Critical Care patient: Yes Total Critical Care Time (in minutes): 90 Critical Care Statement: The care of this patient involved high complexity decision making to prevent further life threatening deterioration of the patient 's condition and/or to evaluate & treat vital organ system(s) failure or risk of failure.
--- NOTE | 2018-04-23 11:30 | PN ---
Progress Note (short form) - Note Progress Note: ID Consult dictated Community acquired v. atypical pneumonia PCN allergy Await sputum c/s Legionella/ pneumococcal ag Sputum cytology Quantiferon Empiric ceftriaxone / doxycycline Avoid quinolone/ macrolide with prolonged QT
[2018-04-23 11:34] LABS: MAGNESIUM 2.1 mg/dL (1.8-2.4)
[2018-04-23 11:44] LABS: ANION GAP 10 MMOL/L (8-16); BLOOD UREA NITROGEN 20 mg/dl (7-18); CHLORIDE 105 mmol/L (98-107); CO2 22 mmol/L (22-28); CREATININE 1.4 mg/dl (0.6-1.3); GLUCOSE,RANDOM 85 mg/dl (74-106); POTASSIUM 4.1 mmol/L (3.5-5.1); SODIUM 137 mmol/L (136-145)
[2018-04-23] MEDS ORDERED: CEFTRIAXONE 2 GM/100 ML BAG IVPB SCH (11:45)
--- NOTE | 2018-04-23 12:53 | CONS ---
DATE OF CONSULTATION: DATE OF DICTATION: 04/23/2018 HISTORY OF PRESENT ILLNESS: The patient is a 72-year-old male evaluated for pneumonia. The patient recently returned from a trip to [place] with complaints of worsening shortness of breath, a productive cough, fatigue and increasing lower extremity edema. He left for [place] approximately three weeks ago. Shortly after his arrival, he became increasingly short of breath and had developed increasing lower extremity edema. He did not wish to terminate his three-week trip so he continued onward. He developed a cough productive of greenish sputum as well as worsening dyspnea and orthopnea. He began taking ciprofloxacin, which was provided to him prior to his trip in the event that he should develop a gastrointestinal illness. His symptoms progressively worsened. On the day of his arrival back in the [place], he presented to his primary care physician, where he was evaluated and was referred to the emergency room for admission. At the present time, he is awake and alert. He complains of a cough productive of greenish sputum. He denies any chest pain or hemoptysis. He does appear slightly dyspneic. However, he denies any acute respiratory distress. He denied any febrile illness while he was in [place]. He had no known insect bites or mosquito bites. He was adherent to his mefloquine prophylaxis. He had received a yellow fever vaccine prior to his departure. His , who traveled with him, is well and has no similar respiratory tract illness. The patient denies any known ill contacts. He is a former smoker, having stopped approximately 40 years ago. He was exposed to numerous animals during his trip, including elephants and wild cats. He traveled to [facility], [facility] and [facility]. PAST MEDICAL HISTORY: Positive for Crohn disease, a history of skin cancer, melanoma, gastroesophageal reflux disease. ALLERGIES: PENICILLIN. The patient reports developing a rash from this as a child. No history of anaphylaxis. MEDICATIONS: Calcium, vitamin D, Pepcid, Claritin. SOCIAL HISTORY: He is a former smoker, having stopped approximately 40 years ago. Occasional ETOH. He is . REVIEW OF SYSTEMS: Neurologic: No loss of consciousness, seizure activity or focal weakness. Cardiac: Negative for chest pain or palpitations. Respiratory: As per HPI. Gastrointestinal: Negative for vomiting or diarrhea. Genitourinary: Negative for urinary tract infection. LABORATORY DATA: White count 8.1 with a normal differential, hematocrit 35.7, platelet count 247, BUN 20, creatinine 1.3, total bilirubin 1.0, alkaline phosphatase 63, AST 44. A urinalysis is negative. Blood culture was negative. A chest x-ray shows a left lung consolidation. CT scan of the chest shows no evidence of pulmonary embolism, large heart, moderate bilateral pleural effusions, bibasilar consolidation and atelectasis with patchy air space disease in the upper lobes, left more than right, consistent with pneumonia. PHYSICAL EXAMINATION: General: The patient is out of bed to chair. He is in no acute distress. His breathing is unlabored. He does not appear acutely toxic. Vital Signs: Temperature 97.6, pulse 90 and regular, blood pressure 122/80, respiratory rate 17 per minute. HEENT:: Sclerae anicteric. Oropharynx is negative. Neck: Supple. No palpable nodes. Heart: Heart sounds S1, S2. Lungs: Rales, right base; scattered rhonchi. Abdomen: Soft and nontender. Extremities: There is 2+ lower extremity edema. IMPRESSION: 1. Community-acquired vs. atypical pneumonia bilaterally. 2. PENICILLIN ALLERGY. 3. Rule out congestive heart failure. 4. Status post a trip to [place]. PLAN: 1. We will obtain sputum culture, urine Legionella and pneumococcal antigens, sputum cytology and QuantiFERON. 2. Empiric treatment for community-acquired vs. atypical pneumonia with Zithromax and ceftriaxone. 3. Cardiology evaluation. 4. No clear association between the patient's pneumonia and his recent travel to [place]. We will need followup imaging to document clearing of infiltrates. 5. Obtain QuantiFERON. The case was discussed with the patient's . We will follow him. Thank you for the kind referral. ALIN HARVEY M.D. [id number]
[2018-04-23] MEDS ORDERED: LISINOPRIL 5 MG TABLET (FP) PO SCH (15:15)
--- NOTE | 2018-04-23 15:22 | CON.PULM ---
Consult Consult Specialty:: PULMONARY Referred by:: PMD Reason for Consultation:: SOB/ABN CT - History of Present Illness Chief Complaint: SOB/PAGE History of Present Illness: This is a 72 y/o man with a past medical history of Crohn's Disease, GERD, Anemia, Osteoporosis, Melanoma. Who presents to the ED sent in by his PMD for SOB, PAGE, orthopnea, fatigue, and LE edema x 3 weeks. Patient reports returning from [place]. He reports worsening SOB and LE edema prompting him to go see his PMD. Patient reports needing to sit in a "tripod" position to improve his breathing, as well as the inability lying supine. Patient reports having a productive cough with green sputum that has resolved. Patient took ciprofloxacin prophylactically during his trip in [place]. He was vaccinated for Yellow Fever and took Mephaquin prophylactically for Malaria. Patient denies fever, chills, dizziness, CP, palpitations, AP, N/V/D, constipation, dysuria. 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 No: Ascites Hepatobiliary: No: Cirrhosis Renal/: No: Renal Failure Heme/Onc: No: Anemia Psych: No: Addictions Musculoskeletal: No: Chronic low back pain Rheumatology: No: Rheumatoid Arthritis, Sarcoidosis ENT: No: Allergic Rhinitis Endocrine: No: Diabetes Mellitus Dermatology: Yes: Melanoma - Alcohol/Substance Use Hx Alcohol Use: Yes (5 DAYS A WEEK) - Smoking History Smoking history: Former smoker Have you smoked in the past 12 months: No Aproximately how many cigarettes per day: 0 If you are a former smoker, when did you quit?: 1974 - Social History Usual Living Arrangement: With Spouse Place of : [facility] History of Recent Travel: Yes ([place]) Home Medications - Allergies Allergies/Adverse Reactions: Allergies Allergy/AdvReac Type Severity Reaction Status Date / Time Penicillins Allergy Mild Hives Verified 04/22/18 17:32 grass pollen-november Allergy Mild SNEEZING Uncoded 04/22/18 17:32 *RETIRED-02/12/12 - Home Medications Home Medications: Ambulatory Orders Calcium [Natural Calcium] 1,200 mg PO DAILY 01/05/15 Cholecalciferol (Vitamin D3) [Vitamin D] 3,000 unit PO DAILY 01/05/15 Famotidine [Pepcid] 40 mg PO DAILY 01/05/15 Loratadine [Claritin -] 10 mg PO DAILY 01/05/15 Cyanocobalamin [Vitamin B12 -] 1,000 mcg PO DAILY 04/12/16 Family Disease History - Family Disease History Family History: Unremarkable Review of Systems - Review of Systems Constitutional: reports: Loss of Appetite. denies: Fever, Night Sweats Eyes: denies: Double Vision HENT: denies: Difficult Swallowing, Ear Discharge, Ear Pain Neck: reports: No Symptoms Cardiovascular: reports: Edema, Shortness of Breath. denies: Chest Pain, Palpitations Respiratory: reports: Cough, Exercise Intolerance, Orthopnea, PND, SOB, SOB on Exertion. denies: Hemoptysis, Snoring, Wheezing Gastrointestinal: reports: No Symptoms Genitourinary: reports: No Symptoms Breasts: reports: No Symptoms Reported Musculoskeletal: reports: No Symptoms Integumentary: reports: No Symptoms Neurological: reports: No Symptoms Endocrine: reports: No Symptoms Psychiatric: reports: No Symptoms Physical Exam Vital Sings: Vital Signs Temperature 97.6 F 04/23/18 14:28 Pulse Rate 86 04/23/18 14:28 Respiratory Rate 18 04/23/18 14:28 Blood Pressure 114/68 04/23/18 14:28 O2 Sat by Pulse Oximetry (%) 96 04/23/18 14:28 Constitutional: Yes: Calm Eyes: Yes: EOM Intact HENT: Yes: Normocephalic Neck: Yes: Trachea Midline. No: Lymphadenopathy, Thyromegaly Cardiovascular: Yes: Regular Rate and Rhythm, S1, S2 Respiratory: Yes: Diminished (BILATERAL BASES) Gastrointestinal: Yes: Normal Bowel Sounds, Soft Renal/: Yes: WNL Breast(s): Yes: WNL Musculoskeletal: Yes: WNL Edema: Yes Edema: LLE: 2+, RLE: 2+ Neurological: Yes: WNL Psychiatric: Yes: WNL Labs: CBC, BMP 04/23/18 08:05 04/23/18 08:05 REST REVIEWED Imaging - Results Chest X-ray: Report Reviewed, Image Reviewed Cat Scan: Report Reviewed, Image Reviewed Problem List - Problems (1) Abnormality of lung on chest x-ray Code(s): R91.8 - OTHER NONSPECIFIC ABNORMAL FINDING OF LUNG FIELD (2) Acute CHF Code(s): I50.9 - HEART FAILURE, UNSPECIFIED (3) CHF (congestive heart failure) Code(s): I50.9 - HEART FAILURE, UNSPECIFIED Qualifiers: Heart failure type: unspecified Heart failure chronicity: unspecified Qualified Code(s): I50.9 - Heart failure, unspecified (4) Crohn's disease Code(s): K50.90 - CROHN'S DISEASE, UNSPECIFIED, WITHOUT COMPLICATIONS (5) Elevated d-dimer Code(s): R79.89 - OTHER SPECIFIED ABNORMAL FINDINGS OF BLOOD CHEMISTRY (6) Leg swelling Code(s): M79.89 - OTHER SPECIFIED SOFT TISSUE DISORDERS (7) Pneumonia Code(s): J18.9 - PNEUMONIA, UNSPECIFIED ORGANISM Qualifiers: Pneumonia type: due to unspecified organism Laterality: left Lung location: lower lobe of lung Qualified Code(s): J18.1 - Lobar pneumonia, unspecified organism Assessment/Plan SEQUENCE OF EVENTS SEEM TO INDICATE THAT THE CHF BEGAN PRIOR TO HIS DEPARTURE ( EVIDENCED BY LEG EDEMA) ETIOLOGY TO BE DETERMINED. THIS WAS EXACERBATED BY DRINKING LARGE VOLUMES OF FLUID WHILE IN [facility] ON SAFARI AND UNRESTRICTED SALT DIET AND THEN DEVELOPED A PNEUMONIA(LACK OF FEVER AND NL WHITE COUNT IS PUZZLING) WHICH FURTHER WORSENED HIS CHF. WILL NEED ECHO WHICH IS SCHEDULED DIURETICS AND ANTIBIOTICS ORDERED WILL ORDER ESR/CRP CHECK CULTURES DRAWN VIRAL MYOCARDITIS IS A CONSIDERATION THANK YOU FOR THIS MOST INTERESTING CASE. Mey LILLY MD
--- NOTE | 2018-04-23 15:26 | ECHO ---
Name: GEOVANNY VEGA Exam:Adult Echocardiogram Study Date: 04/23/2018 02:01 PM Age: 72 yrs Reason For Study: EF/CHF Height: 67 in Weight: 161 lb BSA: 1.8 m2 MMode/2D Measurements & Calculations IVSd: 1.0 cm Ao root diam: 3.1 cm LVIDd: 6.5 cm LA dimension: 4.3 cm LVIDs: 5.8 cm LVPWd: 0.96 cm EDV(Teich): 219.2 ml ESV(Teich): 169.1 ml Doppler Measurements & Calculations MV E max genoveva: 83.7 cm/sec MV A max genoveva: 85.8 cm/sec MV dec slope: 702.5 cm/sec2 MV E/A: 0.98 MR max genoveva: 527.6 cm/sec TR max genoveva: 244.7 cm/sec MR max P.4 mmHg TR max P.9 mmHg Procedure A two-dimensional transthoracic echocardiogram with color flow and Doppler was performed. Left Ventricle The left ventricle is moderately dilated. Left ventricular systolic function is severely reduced. The re is severe global hypokinesis of the left ventricle. There is apical akinesis. There is apical septal wal l akinesis. There is apical lateral wall akinesis. There is apical anterior wall akinesis. Thrombus can not be excluded. Apical echoes consistent with trabeculae are noted. Cannot rule out associated thrombi. Right Ventricle The right ventricle is grossly normal size. The right ventricular systolic function is moderately red uced. Atria The left atrium is mildly dilated. The right atrium is mildly dilated. Mitral Valve There is mild mitral valve thickening. There is no mitral valve stenosis. There is severe mitral regurgitation. Tricuspid Valve There is mild tricuspid valve thickening. There is no tricuspid stenosis. There is moderate tricuspid regurgitation. Right ventricular systolic pressure is normal. Aortic Valve The aortic valve is normal in structure and function. No hemodynamically significant valvular aortic stenosis. Moderate aortic regurgitation. Pulmonic Valve The pulmonic valve is not well visualized. Great Vessels The aortic root is normal size. Pericardium/Pleura There is a pleural effusion present. Interpretation Summary A two-dimensional transthoracic echocardiogram with color flow and Doppler was performed. There is a pleural effusion present. The left ventricle is moderately dilated. Left ventricular systolic function is severely reduced. Moderate aortic regurgitation. There is severe global hypokinesis of the left ventricle. There is apical akinesis. There is apical septal wall akinesis. There is apical lateral wall akinesis. There is apical anterior wall akinesis. There is moderate tricuspid regurgitation. Right ventricular systolic pressure is normal. The left atrium is mildly dilated. The right atrium is mildly dilated. There is severe mitral regurgitation. Thrombus can not be excluded. Apical echoes consistent with trabeculae are noted. Cannot rule out associated thrombi. The right ventricle is grossly normal size. The right ventricular systolic function is moderately reduced. There is mild mitral valve thickening. There is no mitral valve stenosis. MD Saeed Swanson 04/23/2018 03:26 PM
[2018-04-23] MEDS ORDERED: SPIRONOLACTONE 25 MG TABLET (FP) PO SCH (15:45)
[2018-04-23] MEDS ORDERED: LISINOPRIL 5 MG TABLET (FP) PO ONE (15:52)
[2018-04-23] MEDS ORDERED: FUROSEMIDE 40 MG/4 ML INJECTABLE VIAL IVPUSH STA (15:54)
[2018-04-23] MEDS ORDERED: HEPARIN - 25,000 UNIT in SODIUM CHLORIDE 495 ML IV SCH ×2 (16:15→16:30)
[2018-04-23] MEDS ORDERED: HEPARIN NA (PORCINE) 5,000 UNITS/ML 1ML VIAL IVPUSH STA ×2 (16:20→16:33)
[2018-04-23] MEDS ORDERED: HEPARIN NA (PORCINE) 5,000 UNITS/ML 1ML VIAL IVPUSH PRN ×3 (16:25→18:09)
[2018-04-23] MEDS ORDERED: MAGNESIUM SULF 50% (8.12 MEQ/2 ML-1 GM VIAL) IVPB STA (16:50)
[2018-04-23] MEDS: HEPARIN INFUSION - 25,000 UNITS/500 ML INFUS.BAG IVPB SCH (16:50)
[2018-04-23] MEDS ORDERED: FAMOTIDINE 20 MG TABLET PO SCH (18:00)
--- NOTE | 2018-04-23 18:16 | HOSP ---
Subjective - Review of Symptoms General: Yes: Fatigue, Malaise Pulmonary: Yes: Dyspnea, Other Cardiovascular: Yes: Orthopnea Neurological: Yes: Weakness Physical Examination Vital Signs: Vital Signs Temperature 97.6 F 04/23/18 14:28 Pulse Rate 92 H 04/23/18 16:07 Respiratory Rate 18 04/23/18 16:07 Blood Pressure 112/78 04/23/18 16:07 O2 Sat by Pulse Oximetry (%) 96 04/23/18 14:28 Constitutional: Yes: Calm, Mild Distress Eyes: Yes: WNL HENT: Yes: WNL Neck: Yes: WNL Cardiovascular: Yes: Regular Rate and Rhythm Respiratory: Yes: CTA Bilaterally, Diminished Gastrointestinal: Yes: Normal Bowel Sounds Labs: CBC, BMP 04/23/18 08:05 04/23/18 08:05 Hospitalist Encounter Assessment: Received signout on this patient. Patient transfer from [facility] to [facility] Patient in bed, in no acute distress. states started to feel much weaker, and short of breath x 1 year ago, but ignored symptoms and attributed them to aging. felt slightly worse and with more dyspnea on exertion in the last few months but still went on a trip overseas. after trip symptoms worsen and was sent in by PCP for shortness of breath with exertion. Imaging: Echo: LV severely reduced; severe global, apical, apical septal wall, apical lateral wall, apical anterior wall akinesis; cannot r/o thrombi; RV moderately Patient on telemonitoring, monitor closely. encouraged patient to wear 2 liters of oxygen through the night and prn during day Patient on a heparin drip cardiology following.
[2018-04-24] MEDS: FUROSEMIDE 40 MG/4 ML INJECTABLE VIAL IVPUSH SCH ×2 (05:47→14:26)
[2018-04-24] MEDS ORDERED: FUROSEMIDE 40 MG/4 ML INJECTABLE VIAL IVPUSH SCH ×2 (06:00)
[2018-04-24 07:21] LABS: CHOLESTEROL 133 mg/dL (50-200); HDL CHOLESTEROL 56 mg/dL (40-60); TRIGLYCERIDES 71 mg/dL (0-150)
[2018-04-24 07:57] LABS: BASO % 0.6 % (0-2.0); EOS % 2.4 % (0-4.5); HEMOGLOBIN 12.5 GM/dL (11.7-16.9); LYMPH % 12.2 % (8-40); MCH 29.5 pg (25.7-33.7); MCHC 32.8 g/dl (32.0-35.9); MEAN PLT VOLUME 10.9 fl (7.5-11.1); MONO % 8.3 % (3.8-10.2); NEUT % 76.5 % (42.8-82.8); PLATELET COUNT 237 K/MM3 (134-434); RBC 4.23 M/mm3 (4.00-5.60); RDW 14.9 % (11.9-15.9); WHITE BLOOD COUNT 9.3 K/mm3 (4.0-10.0)
[2018-04-24 08:45] LABS: ALBUMIN 2.7 g/dl (3.4-5.0); ALK PHOS 73 U/L (45-117); ANION GAP 7 MMOL/L (8-16); BLOOD UREA NITROGEN 20 mg/dL (7-18); CHLORIDE 108 mmol/L (98-107); CO2 27 mmol/L (21-32); CREATININE 1.3 mg/dL (0.55-1.3); GLUCOSE,RANDOM 93 mg/dL (74-106); MAGNESIUM 2.1 mg/dL (1.8-2.4); POTASSIUM 3.7 mmol/L (3.5-5.1); SGOT/AST 31 U/L (15-37); SGPT/ALT 50 U/L (13-61); SODIUM 142 mmol/L (136-145); TOT PROT 5.5 g/dl (6.4-8.2)
[2018-04-24] MEDS ORDERED: PT OWN MED DRAWER 7, Y5N ONE (09:19)
[2018-04-24] MEDS ORDERED: DEXTROSE 5%-WATER 100 ML IVPB ONE (09:20)
--- NOTE | 2018-04-24 09:41 | PN ---
Progress Note, Physician History of Present Illness: Awake, alert Reports dyspnea on exertion, occasional productive cough No c/o chest pain No fever/chills Afebrile WBC WNL BC (-) Legionella ag (-) - Current Medication List Current Medications: Active Medications Calcium Carbonate/Cholecalciferol (Os-Joao 500+D -) 1 tab PO DAILY [facility] Cyanocobalamin (Vitamin B12 -) 1,000 mcg PO DAILY [facility] Famotidine (Pepcid -) 20 mg PO DAILY@1800 [facility] Furosemide (Lasix Injection -) 40 mg IVPUSH 0600,1400 [facility] Last Admin: 04/24/18 05:47 Dose: 40 mg Heparin Sodium (Porcine) (Heparin -) 1,000 unit IVPUSH PRN PRN PRN Reason: Heparin Heparin Sodium (Porcine) (Heparin -) 5,000 unit IVPUSH PRN PRN PRN Reason: Heparin Heparin Sodium/Dextrose (Heparin Infusion -) 25,000 units in 500 mls @ 23.04 mls/hr IVPB TITR [facility]; Protocol Last Admin: 04/23/18 16:50 Dose: 1,152 units/hr, 23.04 mls/hr Ceftriaxone Sodium 2 gm/ (Dextrose) 100 mls @ 200 mls/hr IVPB DAILY [facility]; Protocol Doxycycline Hyclate 100 mg/ (Dextrose) 100 mls @ 100 mls/hr IVPB BID [facility] Last Admin: 04/23/18 22:29 Dose: 100 mls/hr Lisinopril (Prinivil) 2.5 mg PO DAILY [facility] Loratadine (Claritin -) 10 mg PO DAILY [facility] Spironolactone (Aldactone -) 25 mg PO DAILY [facility] - Objective Vital Signs: Vital Signs Temperature 98.2 F 04/24/18 05:52 Pulse Rate 85 04/24/18 05:52 Respiratory Rate 20 04/24/18 05:52 Blood Pressure 140/80 04/24/18 05:52 O2 Sat by Pulse Oximetry (%) 95 04/23/18 21:00 Constitutional: Yes: No Distress Eyes: Yes: Conjunctiva Clear Cardiovascular: Yes: Regular Rate and Rhythm, S1, S2 Respiratory: Yes: Other (decreased BS bases bilaterally) Gastrointestinal: Yes: Normal Bowel Sounds, Soft. No: Tenderness Edema: Yes Edema: LLE: 2+, RLE: 2+ Labs: CBC, BMP 04/24/18 06:00 04/24/18 06:00 INR, PTT INR 1.21 (0.82-1.09) 04/22/18 17:30 Assessment/Plan Pneumonia v. CHF Pleural effusions PCN allergy Echocardiogram findings noted Case discussed with cardiology Await c/s Clinical presentation more c/w CHF than pneumonia Cleared from ID standpoint for cardiac catheterization
[2018-04-24] MEDS: LORATADINE 10 MG TABLET PO SCH (10:45)
[2018-04-24] MEDS: CEFTRIAXONE 2 GM in DEXTROSE 5%-WATER 100 ML IVPB SCH (10:45)
[2018-04-24] MEDS: SPIRONOLACTONE 25 MG TABLET (FP) PO SCH (10:46)
[2018-04-24] MEDS: LISINOPRIL 5 MG TABLET (FP) PO SCH (10:46)
[2018-04-24] MEDS: CYANOCOBALAMIN 1,000 MCG TABLET (FP) PO SCH (10:48)
[2018-04-24] MEDS: CALCIUM 500MG/VIT-D 200 UNITS COMBO TABLET (FP) PO SCH (10:48)
--- NOTE | 2018-04-24 11:54 | PN ---
Progress Note, Physician Chief Complaint: Pt A7O3; sitting up in bed; no chest pain, dizziness, or shortness of breath. History of Present Illness: 69 y/o white male presenting to [facility] on referral from Dr. Hartman office (in same building) complaining of a three week history of shortness of breath, fatigue, and bilateral lower extremity swelling. Symptoms started just prior to leaving for a three week trip to [place]. First noticed symmetrical bilateral lower extremity swelling without pain or overlying skin lesions. States he began having difficulty laying flat at night while sleeping; started sleeping upright in bed. Became easily fatigable with minimal exertion. Endorses paroxysmal nocturnal dyspnea and HR consistently >90 bpm. Denies chest pain, fever, chills, or diaphoresis. Denies h/o of similar in the past. No prior cardiac history; Was last evaluated by a cash register operator approx. 10 years ago; believes he had a normal stress test. Exercises regularly with biking and running. Endorses cough productive of green sputum. Took Ciprofloxacin, which was prescribed as "in case antibiotic" for trip. States the cough persisted but the green sputum production stopped. Returned from [facility] earlier today. Traveled to [facility], various parts of [facility], and [facility]. Was compliant with Mephaquin malaria prophylaxis. Received Yellow Fever vaccination. Did not seek medical attention while abroad because he did not want to leave the tour. Was evaluated by PCP prior to arrival to the ER. EKG obtained in clinic showed a new onset LBBB when compared to previous EKG dated 12 Jan 2016. PCP: Dr. Michael Stroud Social Hx: - EtoH: 1-2 drinks per night - Tobacco: Remote h/o of smoking. Approx. 10 pack years. - Street Drugs: Denies. Medical Hx: - Crohns Disease - Melanoma on L arm - Anemia, type unknown - GERD - Osteoporosis Surgical Hx: - Tonsillectomy - Current Medication List Current Medications: Active Medications Calcium Carbonate/Cholecalciferol (Os-Joao 500+D -) 1 tab PO DAILY [facility] Last Admin: 04/24/18 10:48 Dose: 1 tab Cyanocobalamin (Vitamin B12 -) 1,000 mcg PO DAILY [facility] Last Admin: 04/24/18 10:48 Dose: 1,000 mcg Docusate Sodium (Colace -) 100 mg PO ONCE ONE Stop: 04/24/18 11:52 Famotidine (Pepcid -) 20 mg PO DAILY@1800 [facility] Furosemide (Lasix Injection -) 40 mg IVPUSH 0600,1400 [facility] Last Admin: 04/24/18 05:47 Dose: 40 mg Heparin Sodium (Porcine) (Heparin -) 1,000 unit IVPUSH PRN PRN PRN Reason: Heparin Heparin Sodium (Porcine) (Heparin -) 5,000 unit IVPUSH PRN PRN PRN Reason: Heparin Heparin Sodium/Dextrose (Heparin Infusion -) 25,000 units in 500 mls @ 23.04 mls/hr IVPB TITR [facility]; Protocol Last Admin: 04/23/18 16:50 Dose: 1,152 units/hr, 23.04 mls/hr Ceftriaxone Sodium 2 gm/ (Dextrose) 100 mls @ 200 mls/hr IVPB DAILY [facility]; Protocol Last Admin: 04/24/18 10:45 Dose: 200 mls/hr Lisinopril (Prinivil) 2.5 mg PO DAILY [facility] Last Admin: 04/24/18 10:46 Dose: 2.5 mg Loratadine (Claritin -) 10 mg PO DAILY [facility] Last Admin: 04/24/18 10:45 Dose: 10 mg Spironolactone (Aldactone -) 25 mg PO DAILY [facility] Last Admin: 04/24/18 10:46 Dose: 25 mg - Objective Vital Signs: Vital Signs Temperature 98.2 F 04/24/18 05:52 Pulse Rate 85 04/24/18 05:52 Respiratory Rate 20 04/24/18 05:52 Blood Pressure 140/80 04/24/18 05:52 O2 Sat by Pulse Oximetry (%) 95 04/23/18 21:00 Constitutional: Yes: Anxious Eyes: Yes: WNL HENT: Yes: WNL Neck: Yes: Supple Cardiovascular: Yes: Murmur, S1, S2, S4 Respiratory: Yes: Diminished (bibasal) Gastrointestinal: Yes: Soft ...Rectal Exam: Yes: Deferred Genitourinary: No: Anuria Musculoskeletal: Yes: WNL Extremities: Yes: Cool Edema: Yes Edema: LLE: 1+, RLE: 1+ Peripheral Pulses WNL: Yes Integumentary: Yes: WNL Neurological: Yes: WNL Psychiatric: Yes: WNL Labs: CBC, BMP 04/24/18 06:00 04/24/18 06:00 INR, PTT INR 1.21 (0.82-1.09) 04/22/18 17:30 Abnormal Lab Results 04/23/18 04/24/18 04/24/18 22:00 06:00 06:00 PTT (Actin FS) 69.4 H 65.4 H Chloride 108 H Anion Gap 7 L BUN 20 H Calcium 8.0 L Total Protein 5.5 L Albumin 2.7 L - ....Imaging Chest X-ray: Image Reviewed Ultrasound: Report Reviewed (ECHO: severely reduced LVEF) Other: Image Reviewed (telemetry: NSR) Problem List - Problems (1) Acute on chronic systolic (congestive) heart failure Assessment/Plan: +JVP Decreased bibasilar BS; scattered rales; good air entry upper heard. Plan: On spironolactone. On lisinopril; increase dose as tolerated. Start carvedilol. F/u BUn/Cr, electrolytes, Is and Os, daily weight. Plan for evaluation of coronary arteries to r/o ischemic cardiomyopathy; r/o infectious/inflammatory process of cardiomyopathy. Pt states that, for decades, he has had nearly nightly bilateral ankle swelling at the end of the day that has disappeared by the time he wakes up in the morning. He has been on no medications until this admission. His legs became markedly swollen during the past few weeks, after long plane rides to and within [place], and "eating lots of high-salt meals". Denies more than one or two glasses of alcohol daily; never was a heavy drinker Code(s): I50.23 - ACUTE ON CHRONIC SYSTOLIC (CONGESTIVE) HEART FAILURE (2) Acute anxiety Assessment/Plan: Consdier anxioulytic.; both he and his are feeling guilty that the recent trip to [place] may have caused his current state. Code(s): F41.9 - ANXIETY DISORDER, UNSPECIFIED (3) Crohn's disease Code(s): K50.90 - CROHN'S DISEASE, UNSPECIFIED, WITHOUT COMPLICATIONS (4) Hypomagnesemia Code(s): E83.42 - HYPOMAGNESEMIA (5) Leg swelling Code(s): M79.89 - OTHER SPECIFIED SOFT TISSUE DISORDERS
[2018-04-24] MEDS: CARVEDILOL 3.125 MG TABLET (FP) PO SCH ×2 (12:52→21:03)
[2018-04-24] MEDS ORDERED: DOCUSATE SODIUM 100 MG CAPSULE (FP) PO ONE (13:00)
--- NOTE | 2018-04-24 14:21 | PN ---
Progress Note (short form) - Note Progress Note: Breathing feels better today. Diuresing well. No CP. Less SOB. Intake & Output 04/21/18 04/22/18 04/23/18 04/24/18 23:59 23:59 23:59 23:59 Intake Total 1220 276 Output Total 200 Balance -200 1220 276 Weight 171 lb 161 lb 3.2 oz 159 lb 3.2 oz Last Vital Signs Temp Pulse Resp BP Pulse Ox 97.6 F 88 20 122/81 94 L 04/24/18 11:00 04/24/18 11:00 04/24/18 11:00 04/24/18 11:00 04/24/18 09:00 Active Medications Calcium Carbonate/Cholecalciferol (Os-Joao 500+D -) 1 tab PO DAILY [facility] Last Admin: 04/24/18 10:48 Dose: 1 tab Carvedilol (Coreg -) 3.125 mg PO BID [facility] Last Admin: 04/24/18 12:52 Dose: 3.125 mg Cyanocobalamin (Vitamin B12 -) 1,000 mcg PO DAILY [facility] Last Admin: 04/24/18 10:48 Dose: 1,000 mcg Famotidine (Pepcid -) 20 mg PO DAILY@1800 [facility] Furosemide (Lasix Injection -) 40 mg IVPUSH 0600,1400 [facility] Last Admin: 04/24/18 05:47 Dose: 40 mg Heparin Sodium (Porcine) (Heparin -) 1,000 unit IVPUSH PRN PRN PRN Reason: Heparin Heparin Sodium (Porcine) (Heparin -) 5,000 unit IVPUSH PRN PRN PRN Reason: Heparin Heparin Sodium/Dextrose (Heparin Infusion -) 25,000 units in 500 mls @ 23.04 mls/hr IVPB TITR [facility]; Protocol Last Admin: 04/23/18 16:50 Dose: 1,152 units/hr, 23.04 mls/hr Ceftriaxone Sodium 2 gm/ (Dextrose) 100 mls @ 200 mls/hr IVPB DAILY [facility]; Protocol Last Admin: 04/24/18 10:45 Dose: 200 mls/hr Lisinopril (Prinivil) 2.5 mg PO DAILY [facility] Last Admin: 04/24/18 10:46 Dose: 2.5 mg Loratadine (Claritin -) 10 mg PO DAILY [facility] Last Admin: 04/24/18 10:45 Dose: 10 mg Spironolactone (Aldactone -) 25 mg PO DAILY [facility] Last Admin: 04/24/18 10:46 Dose: 25 mg Constitutional: Yes: NAD Eyes: Yes: EOM Intact HENT: Yes: Normocephalic Neck: Yes: Trachea Midline. No: Lymphadenopathy, Thyromegaly Cardiovascular: Yes: Regular Rate and Rhythm, S1, S2 Respiratory: Yes: Bibasilar Rales Gastrointestinal: Yes: Normal Bowel Sounds, Soft Renal/: Yes: WNL Breast(s): Yes: WNL Musculoskeletal: Yes: WNL Edema: Yes Edema: LLE: 2+, RLE: 2+ Neurological: Yes: WNL Psychiatric: Yes: WNL Labs: Laboratory Results - last 24 hr 04/23/18 04/24/18 04/24/18 22:00 06:00 06:00 WBC 9.3 RBC 4.23 Hgb 12.5 Hct 38.0 MCV 90.0 MCH 29.5 MCHC 32.8 RDW 14.9 Plt Count 237 MPV 10.9 Absolute Neuts (auto) 7.2 Neutrophils % 76.5 Lymphocytes % 12.2 Monocytes % 8.3 Eosinophils % 2.4 Basophils % 0.6 Nucleated RBC % 0 PTT (Actin FS) 69.4 H Sodium 142 Potassium 3.7 Chloride 108 H Carbon Dioxide 27 Anion Gap 7 L BUN 20 H Creatinine 1.3 Creat Clearance w eGFR 54.26 Random Glucose 93 Calcium 8.0 L Magnesium 2.1 Total Bilirubin 1.0 AST 31 ALT 50 Alkaline Phosphatase 73 Total Protein 5.5 L Albumin 2.7 L Triglycerides Cholesterol Total LDL Cholesterol HDL Cholesterol 04/24/18 04/24/18 06:00 06:00 WBC RBC Hgb Hct MCV MCH MCHC RDW Plt Count MPV Absolute Neuts (auto) Neutrophils % Lymphocytes % Monocytes % Eosinophils % Basophils % Nucleated RBC % PTT (Actin FS) 65.4 H Sodium Potassium Chloride Carbon Dioxide Anion Gap BUN Creatinine Creat Clearance w eGFR Random Glucose Calcium Magnesium Total Bilirubin AST ALT Alkaline Phosphatase Total Protein Albumin Triglycerides 71 Cholesterol 133 Total LDL Cholesterol 71 HDL Cholesterol 56 Problem List - Problems (1) Abnormality of lung on chest x-ray Code(s): R91.8 - OTHER NONSPECIFIC ABNORMAL FINDING OF LUNG FIELD (2) Acute CHF Code(s): I50.9 - HEART FAILURE, UNSPECIFIED (3) CHF (congestive heart failure) Code(s): I50.9 - HEART FAILURE, UNSPECIFIED Qualifiers: Heart failure type: unspecified Heart failure chronicity: unspecified Qualified Code(s): I50.9 - Heart failure, unspecified (4) Crohn's disease Code(s): K50.90 - CROHN'S DISEASE, UNSPECIFIED, WITHOUT COMPLICATIONS (5) Elevated d-dimer Code(s): R79.89 - OTHER SPECIFIED ABNORMAL FINDINGS OF BLOOD CHEMISTRY (6) Leg swelling Code(s): M79.89 - OTHER SPECIFIED SOFT TISSUE DISORDERS (7) Pneumonia Code(s): J18.9 - PNEUMONIA, UNSPECIFIED ORGANISM Qualifiers: Pneumonia type: due to unspecified organism Laterality: left Lung location: lower lobe of lung Qualified Code(s): J18.1 - Lobar pneumonia, unspecified organism Assessment/Plan Lasix O2 as needed to maintain saturation AC ABX per ID: Low threshold to stop Cardiac cath being arranged by Cardiology Dr North
--- NOTE | 2018-04-24 18:17 | PN ---
Physical Exam: SUBJECTIVE: Patient seen and examined at the bedside. at bedside. No overnight events, states he is comfortable at rest. only short of breath with ambulation. c/o of constipation. OBJECTIVE: daily weights improving 77->72kg on supplemental oxygen prn tolerating room air Vital Signs Period Temp Pulse Resp BP Sys/Hobbs Pulse Ox Last 24 Hr 97.6 F-98.2 F 84-88 20-20 119-140/59-81 94-95 GENERAL: The patient is awake, alert, and fully oriented, in no acute distress. HEAD: Normal with no signs of trauma. EYES: PERRL, extraocular movements intact, sclera anicteric, conjunctiva clear. No ptosis. ENT: Ears normal, nares patent, oropharynx clear without exudates, moist mucous membranes. NECK: Trachea midline, full range of motion, supple. LUNGS: Breath sounds equal, clear to auscultation bilaterally HEART: Regular rate and rhythm ABDOMEN: Soft, nontender, nondistended, normoactive bowel sounds, EXTREMITIES: +2 bilateral lower ext edema. NEUROLOGICAL: Normal speech, gait not observed. PSYCH: Normal mood, normal affect. SKIN: Warm, dry, normal turgor, no rashes or lesions noted Laboratory Results - last 24 hr 04/23/18 04/24/18 04/24/18 22:00 06:00 06:00 WBC 9.3 RBC 4.23 Hgb 12.5 Hct 38.0 MCV 90.0 MCH 29.5 MCHC 32.8 RDW 14.9 Plt Count 237 MPV 10.9 Absolute Neuts (auto) 7.2 Neutrophils % 76.5 Lymphocytes % 12.2 Monocytes % 8.3 Eosinophils % 2.4 Basophils % 0.6 Nucleated RBC % 0 PTT (Actin FS) 69.4 H Sodium 142 Potassium 3.7 Chloride 108 H Carbon Dioxide 27 Anion Gap 7 L BUN 20 H Creatinine 1.3 Creat Clearance w eGFR 54.26 Random Glucose 93 Calcium 8.0 L Magnesium 2.1 Total Bilirubin 1.0 AST 31 ALT 50 Alkaline Phosphatase 73 Total Protein 5.5 L Albumin 2.7 L Triglycerides Cholesterol Total LDL Cholesterol HDL Cholesterol 04/24/18 04/24/18 06:00 06:00 WBC RBC Hgb Hct MCV MCH MCHC RDW Plt Count MPV Absolute Neuts (auto) Neutrophils % Lymphocytes % Monocytes % Eosinophils % Basophils % Nucleated RBC % PTT (Actin FS) 65.4 H Sodium Potassium Chloride Carbon Dioxide Anion Gap BUN Creatinine Creat Clearance w eGFR Random Glucose Calcium Magnesium Total Bilirubin AST ALT Alkaline Phosphatase Total Protein Albumin Triglycerides 71 Cholesterol 133 Total LDL Cholesterol 71 HDL Cholesterol 56 Active Medications Generic Name Dose Route Start Last Admin Trade Name Freq PRN Reason Stop Dose Admin Calcium Carbonate/Cholecalciferol 1 tab 04/24/18 10:00 04/24/18 10:48 Os-Joao 500+D - PO 1 tab DAILY [facility] Administration Carvedilol 3.125 mg 04/24/18 12:45 04/24/18 12:52 Coreg - PO 3.125 mg BID [facility] Administration Cyanocobalamin 1,000 mcg 04/24/18 10:00 04/24/18 10:48 Vitamin B12 - PO 1,000 mcg DAILY [facility] Administration Famotidine 20 mg 04/24/18 18:00 Pepcid - PO DAILY@1800 [facility] Furosemide 40 mg 04/24/18 06:00 04/24/18 14:26 Lasix Injection - IVPUSH 40 mg 0600,1400 [facility] Administration Heparin Sodium (Porcine) 1,000 unit 04/23/18 18:09 Heparin - IVPUSH PRN PRN Heparin Heparin Sodium (Porcine) 5,000 unit 04/23/18 18:09 Heparin - IVPUSH PRN PRN Heparin Heparin Sodium/Dextrose 25,000 units in 500 mls @ 23.04 mls/hr 04/23/18 16:45 04/23/18 16:50 Heparin Infusion - IVPB 1,152 units/hr TITR [facility] 23.04 mls/hr Administration Protocol 1,152 UNITS/HR Ceftriaxone Sodium 2 gm/ 100 mls @ 200 mls/hr 04/24/18 10:00 04/24/18 10:45 Dextrose IVPB 200 mls/hr DAILY [facility] Administration Protocol Lisinopril 2.5 mg 04/24/18 10:00 04/24/18 10:46 Prinivil PO 2.5 mg DAILY [facility] Administration Loratadine 10 mg 04/24/18 10:00 04/24/18 10:45 Claritin - PO 10 mg DAILY [facility] Administration Spironolactone 25 mg 04/24/18 10:00 04/24/18 10:46 Aldactone - PO 25 mg DAILY [facility] Administration Imaging: Echo: LV severely reduced; severe global, apical, apical septal wall, apical lateral wall, apical anterior wall akinesis; cannot r/o thrombi; RV moderately reduced; BLAE; severe MR; moderate TR; moderae AI; pleural effusion Chest CT: moderate bilateral pleural effusions ASSESSMENT/PLAN: Patient is a 72 year old male with a significant past medical history of crohn' s disease, chronic anemia, GERD and left arm melanoma. He denies any other medical history. Patient admitted for increased shortness of breath, bilateral lower ext edema and dyspnea with physical activity. ------- problem list Severe decompensated biventricular systolic heart failure Possible bilateral pneumonia Crohns disease Possible cardiac thrombus seen on echo GERD Osteoporosos ------ On Lasix 40mg bid On heparin drip On Lisinopril 2.5mg, coreq 3.25 bid Daily ASA Monitor magnesium, K levels Tele monitoring Daily weights transfer to cardiac cath tomorrow full code Visit type - Emergency Visit Emergency Visit: Yes ED Registration Date: 04/22/18 Care time: The patient presented to the Emergency Department on the above date and was hospitalized for further evaluation of their emergent condition. - New Patient This patient is new to me today: No - Critical Care Critical Care patient: No - Discharge Referral Referred to [facility] Med [facility] No
[2018-04-24] MEDS: HEPARIN INFUSION - 25,000 UNITS/500 ML INFUS.BAG IVPB SCH (21:04)
[2018-04-25] MEDS: FUROSEMIDE 40 MG/4 ML INJECTABLE VIAL IVPUSH SCH (06:38)
[2018-04-25] MEDS: HEPARIN INFUSION - 25,000 UNITS/500 ML INFUS.BAG IVPB SCH ×2 (06:46→17:28)
[2018-04-25 07:34] LABS: HEMATOCRIT 38.8 % (35.4-49); HEMOGLOBIN 12.5 GM/dL (11.7-16.9); MCHC 32.3 g/dl (32.0-35.9); MEAN CELL VOLUME 89.9 fl (80-96); MEAN PLT VOLUME 10.4 fl (7.5-11.1); PLATELET COUNT 236 K/MM3 (134-434); RBC 4.31 M/mm3 (4.00-5.60); RDW 15.1 % (11.9-15.9)
--- NOTE | 2018-04-25 08:31 | PN ---
Progress Note, Physician History of Present Illness: This is a 72 y/o man with a past medical history of Crohn's Disease, GERD, Anemia, Osteoporosis, Melanoma. Who presents to the ED sent in by his PMD for SOB, PAGE, orthopnea, fatigue, and LE edema x 3 weeks. Patient reports returning from [place] today. He reports worsening SOB and LE edema prompting him to go see his PMD. Patient reports needing to sit in a "tripod" position to improve his breathing, as well as the inability lying supine. Patient reports having a productive cough with green sputum that has resolved. Patient took ciprofloxacin prophylactically during his trip in [place]. He was vaccinated for Yellow Fever and took Mephaquin prophylactically for Malaria. Patient denies fever, chills, dizziness, CP, palpitations, AP, N/V/D, constipation, dysuria. ER course was notable for: (1) Chest Xray- left lung mass, atelectasis at the bases, CT is strongly recommended (2) BNP 8143 (3) D-Dimer 926 (4) EKG- NSR with RBBB, LVH, cannot r/o Septal Infarct, age undetermined (5) Mg 1.7 - Current Medication List Current Medications: Active Medications Calcium Carbonate/Cholecalciferol (Os-Joao 500+D -) 1 tab PO DAILY [facility] Last Admin: 04/24/18 10:48 Dose: 1 tab Carvedilol (Coreg -) 3.125 mg PO BID [facility] Last Admin: 04/24/18 21:03 Dose: 3.125 mg Cyanocobalamin (Vitamin B12 -) 1,000 mcg PO DAILY [facility] Last Admin: 04/24/18 10:48 Dose: 1,000 mcg Famotidine (Pepcid -) 20 mg PO DAILY@1800 [facility] Furosemide (Lasix Injection -) 40 mg IVPUSH 0600,1400 [facility] Last Admin: 04/25/18 06:38 Dose: 40 mg Heparin Sodium (Porcine) (Heparin -) 1,000 unit IVPUSH PRN PRN PRN Reason: Heparin Heparin Sodium (Porcine) (Heparin -) 5,000 unit IVPUSH PRN PRN PRN Reason: Heparin Heparin Sodium/Dextrose (Heparin Infusion -) 25,000 units in 500 mls @ 23.04 mls/hr IVPB TITR [facility]; Protocol Last Admin: 04/25/18 06:46 Dose: 1,152 units/hr, 23.04 mls/hr Ceftriaxone Sodium 2 gm/ (Dextrose) 100 mls @ 200 mls/hr IVPB DAILY [facility]; Protocol Last Admin: 04/24/18 10:45 Dose: 200 mls/hr Lisinopril (Prinivil) 2.5 mg PO DAILY [facility] Last Admin: 04/24/18 10:46 Dose: 2.5 mg Loratadine (Claritin -) 10 mg PO DAILY [facility] Last Admin: 04/24/18 10:45 Dose: 10 mg Spironolactone (Aldactone -) 25 mg PO DAILY [facility] Last Admin: 04/24/18 10:46 Dose: 25 mg - Objective Vital Signs: Vital Signs Temperature 98.1 F 04/25/18 06:00 Pulse Rate 77 04/25/18 06:00 Respiratory Rate 20 04/25/18 06:00 Blood Pressure 117/69 04/25/18 06:00 O2 Sat by Pulse Oximetry (%) 94 L 04/24/18 21:00 Eyes: Yes: WNL, Conjunctiva Clear, EOM Intact HENT: Yes: WNL, Atraumatic, Normocephalic Neck: Yes: WNL, Supple, Trachea Midline Cardiovascular: Yes: WNL, Regular Rate and Rhythm, JVD, S1, S2 Respiratory: Yes: CTA Bilaterally Gastrointestinal: Yes: WNL, Normal Bowel Sounds Genitourinary: Yes: WNL Musculoskeletal: Yes: WNL Extremities: Yes: WNL Edema: No Edema: LLE: Trace, RLE: Trace Integumentary: Yes: WNL Neurological: Yes: WNL, Alert, Oriented ...Motor Strength: WNL Psychiatric: Yes: WNL Labs: CBC, BMP 04/25/18 06:25 04/24/18 06:00 INR, PTT INR 1.21 (0.82-1.09) 04/22/18 17:30 Problem List - Problems (1) Abnormality of lung on chest x-ray Code(s): R91.8 - OTHER NONSPECIFIC ABNORMAL FINDING OF LUNG FIELD (2) Acute CHF Code(s): I50.9 - HEART FAILURE, UNSPECIFIED (3) CHF (congestive heart failure) Code(s): I50.9 - HEART FAILURE, UNSPECIFIED Qualifiers: Heart failure type: unspecified Heart failure chronicity: unspecified Qualified Code(s): I50.9 - Heart failure, unspecified (4) Crohn's disease Code(s): K50.90 - CROHN'S DISEASE, UNSPECIFIED, WITHOUT COMPLICATIONS (5) Elevated d-dimer Code(s): R79.89 - OTHER SPECIFIED ABNORMAL FINDINGS OF BLOOD CHEMISTRY (6) Hypomagnesemia Code(s): E83.42 - HYPOMAGNESEMIA (7) Leg swelling Code(s): M79.89 - OTHER SPECIFIED SOFT TISSUE DISORDERS (8) Pneumonia Code(s): J18.9 - PNEUMONIA, UNSPECIFIED ORGANISM Qualifiers: Pneumonia type: due to unspecified organism Laterality: left Lung location: lower lobe of lung Qualified Code(s): J18.1 - Lobar pneumonia, unspecified organism (9) Right upper quadrant abdominal pain Code(s): R10.11 - RIGHT UPPER QUADRANT PAIN Assessment/Plan (1) Acute on chronic systolic (congestive) heart failure Assessment/Plan: On spironolactone. On lisinopril; increase dose as tolerated. Start carvedilol. F/u BUn/Cr, electrolytes, Is and Os, daily weight. Plan for evaluation of coronary arteries today- transfer to [facility] pending to r/o ischemic cardiomyopathy; r/o infectious/ inflammatory process of cardiomyopathy. Pt states that, for decades, he has had nearly nightly bilateral ankle swelling at the end of the day that has disappeared by the time he wakes up in the morning. He has been on no medications until this admission. His legs became markedly swollen during the past few weeks, after long plane rides to and within [place], and "eating lots of high-salt meals". Denies more than one or two glasses of alcohol daily; never was a heavy drinker Code(s): I50.23 - ACUTE ON CHRONIC SYSTOLIC (CONGESTIVE) HEART FAILURE (2) Acute anxiety Assessment/Plan: Consdier anxioulytic.; both he and his are feeling guilty that the recent trip to [place] may have caused his current state. Code(s): F41.9 - ANXIETY DISORDER, UNSPECIFIED (3) Crohn's disease Code(s): K50.90 - CROHN'S DISEASE, UNSPECIFIED, WITHOUT COMPLICATIONS (4) Hypomagnesemia Code(s): E83.42 - HYPOMAGNESEMIA (5) Leg swelling Code(s): M79.89 - OTHER SPECIFIED SOFT TISSUE DISORDERS
[2018-04-25 09:34] LABS: ALBUMIN 2.7 g/dl (3.4-5.0); ALK PHOS 70 U/L (45-117); ANION GAP 10 MMOL/L (8-16); BILIRUBIN,TOTAL 0.8 mg/dL (0.2-1); BLOOD UREA NITROGEN 21 mg/dL (7-18); CALCIUM 7.9 mg/dL (8.5-10.1); CHLORIDE 103 mmol/L (98-107); CO2 27 mmol/L (21-32); CREATININE 1.4 mg/dL (0.55-1.3); GLUCOSE,RANDOM 85 mg/dL (74-106); POTASSIUM 3.5 mmol/L (3.5-5.1); SGOT/AST 26 U/L (15-37); SGPT/ALT 42 U/L (13-61); SODIUM 141 mmol/L (136-145); TOT PROT 5.6 g/dl (6.4-8.2)
[2018-04-25] MEDS ORDERED: DEXTROSE 5%-WATER 100 ML IVPB ONE (10:20)
[2018-04-25] MEDS: CALCIUM 500MG/VIT-D 200 UNITS COMBO TABLET (FP) PO SCH (10:28)
[2018-04-25] MEDS: LORATADINE 10 MG TABLET PO SCH (10:28)
[2018-04-25] MEDS: CYANOCOBALAMIN 1,000 MCG TABLET (FP) PO SCH (10:28)
[2018-04-25] MEDS: CARVEDILOL 3.125 MG TABLET (FP) PO SCH (10:28)
[2018-04-25] MEDS: LISINOPRIL 5 MG TABLET (FP) PO SCH (10:29)
[2018-04-25] MEDS: CEFTRIAXONE 2 GM in DEXTROSE 5%-WATER 100 ML IVPB SCH (10:31)
[2018-04-25] MEDS: SPIRONOLACTONE 25 MG TABLET (FP) PO SCH (10:32)
[2018-04-25 11:33] LABS: BASO % 0.6 % (0-2.0); EOS % 4.8 % (0-4.5); HEMATOCRIT 38.9 % (35.4-49); HEMOGLOBIN 12.9 GM/dL (11.7-16.9); MCH 29.9 pg (25.7-33.7); MCHC 33.2 g/dl (32.0-35.9); MEAN CELL VOLUME 90.1 fl (80-96); MEAN PLT VOLUME 11.3 fl (7.5-11.1); MONO % 10.3 % (3.8-10.2); NEUT % 66.3 % (42.8-82.8); PLATELET COUNT 246 K/MM3 (134-434); RBC 4.32 M/mm3 (4.00-5.60); RDW 15.5 % (11.9-15.9); WHITE BLOOD COUNT 6.9 K/mm3 (4.0-10.0)
--- NOTE | 2018-04-25 12:12 | PN ---
Progress Note, Physician History of Present Illness: Awake, alert Seated in bed Reports dyspnea on exertion, no cough/ sputum No c/o chest pain No fever/chills Afebrile WBC WNL BC (-) Legionella ag (-) - Current Medication List Current Medications: Active Medications Calcium Carbonate/Cholecalciferol (Os-Joao 500+D -) 1 tab PO DAILY [facility] Last Admin: 04/25/18 10:28 Dose: 1 tab Carvedilol (Coreg -) 3.125 mg PO BID [facility] Last Admin: 04/25/18 10:28 Dose: 3.125 mg Cyanocobalamin (Vitamin B12 -) 1,000 mcg PO DAILY [facility] Last Admin: 04/25/18 10:28 Dose: 1,000 mcg Famotidine (Pepcid -) 20 mg PO DAILY@1800 [facility] Furosemide (Lasix Injection -) 40 mg IVPUSH 0600,1400 [facility] Last Admin: 04/25/18 06:38 Dose: 40 mg Heparin Sodium (Porcine) (Heparin -) 1,000 unit IVPUSH PRN PRN PRN Reason: Heparin Heparin Sodium (Porcine) (Heparin -) 5,000 unit IVPUSH PRN PRN PRN Reason: Heparin Heparin Sodium/Dextrose (Heparin Infusion -) 25,000 units in 500 mls @ 23.04 mls/hr IVPB TITR [facility]; Protocol Last Admin: 04/25/18 06:46 Dose: 1,152 units/hr, 23.04 mls/hr Ceftriaxone Sodium 2 gm/ (Dextrose) 100 mls @ 200 mls/hr IVPB DAILY [facility]; Protocol Last Admin: 04/25/18 10:31 Dose: 200 mls/hr Lisinopril (Prinivil) 2.5 mg PO DAILY [facility] Last Admin: 04/25/18 10:29 Dose: 2.5 mg Loratadine (Claritin -) 10 mg PO DAILY [facility] Last Admin: 04/25/18 10:28 Dose: 10 mg Potassium Chloride (K-Dur -) 20 meq PO ONCE ONE Stop: 04/25/18 09:40 Spironolactone (Aldactone -) 25 mg PO DAILY [facility] Last Admin: 04/25/18 10:32 Dose: 25 mg - Objective Vital Signs: Vital Signs Temperature 98.2 F 04/25/18 10:00 Pulse Rate 80 04/25/18 10:00 Respiratory Rate 18 16/18 10:00 Blood Pressure 99/59 L 04/25/18 10:00 O2 Sat by Pulse Oximetry (%) 94 L 04/24/18 21:00 Constitutional: Yes: No Distress Eyes: Yes: Conjunctiva Clear Cardiovascular: Yes: Regular Rate and Rhythm, S1, S2 Respiratory: Yes: Other (few crepitations R base) Gastrointestinal: Yes: Normal Bowel Sounds, Soft. No: Tenderness Edema: LLE: 1+, RLE: 1+ Labs: CBC, BMP 04/25/18 06:25 04/25/18 06:00 INR, PTT INR 1.21 (0.82-1.09) 04/22/18 17:30 Assessment/Plan CHF Pneumonia unlikely Pleural effusions PCN allergy Echocardiogram findings noted Case discussed with cardiology Clinical presentation more c/w CHF than pneumonia D/C antibiotics Cleared from ID standpoint for cardiac catheterization
[2018-04-25] MEDS ORDERED: POTASSIUM CHLORIDE TABS 20 MEQ TABLET.ER (FP) PO ONE (12:30)
--- NOTE | 2018-04-25 13:12 | PN ---
Progress Note, Physician History of Present Illness: PULMONARY ALERT,NO DISTRESS,- AT REST,-COUGH,-CP - Current Medication List Current Medications: Active Medications Calcium Carbonate/Cholecalciferol (Os-Joao 500+D -) 1 tab PO DAILY [facility] Last Admin: 04/25/18 10:28 Dose: 1 tab Carvedilol (Coreg -) 6.25 mg PO BID [facility] Cyanocobalamin (Vitamin B12 -) 1,000 mcg PO DAILY [facility] Last Admin: 04/25/18 10:28 Dose: 1,000 mcg Famotidine (Pepcid -) 20 mg PO DAILY@1800 [facility] Furosemide (Lasix -) 40 mg PO DAILY [facility] Heparin Sodium (Porcine) (Heparin -) 1,000 unit IVPUSH PRN PRN PRN Reason: Heparin Heparin Sodium (Porcine) (Heparin -) 5,000 unit IVPUSH PRN PRN PRN Reason: Heparin Heparin Sodium/Dextrose (Heparin Infusion -) 25,000 units in 500 mls @ 23.04 mls/hr IVPB TITR [facility]; Protocol Last Admin: 04/25/18 06:46 Dose: 1,152 units/hr, 23.04 mls/hr Lisinopril (Prinivil) 5 mg PO DAILY [facility] Loratadine (Claritin -) 10 mg PO DAILY [facility] Last Admin: 04/25/18 10:28 Dose: 10 mg Spironolactone (Aldactone -) 25 mg PO DAILY [facility] Last Admin: 04/25/18 10:32 Dose: 25 mg - Objective Vital Signs: Vital Signs Temperature 98.2 F 04/25/18 10:00 Pulse Rate 80 04/25/18 10:00 Respiratory Rate 18 04/25/18 10:00 Blood Pressure 99/59 L 04/25/18 10:00 O2 Sat by Pulse Oximetry (%) 94 L 04/24/18 21:00 Constitutional: Yes: Well Nourished, Calm Eyes: Yes: WNL HENT: Yes: WNL Neck: Yes: WNL Cardiovascular: Yes: Regular Rate and Rhythm, S1, S2 Respiratory: Yes: Diminished Gastrointestinal: Yes: Normal Bowel Sounds, Soft Extremities: Yes: WNL Edema: No Labs: CBC, BMP 04/25/18 06:25 04/25/18 06:00 INR, PTT INR 1.21 (0.82-1.09) 04/22/18 17:30 Assessment/Plan Problem List - Problems (1) Abnormality of lung on chest x-ray Code(s): R91.8 - OTHER NONSPECIFIC ABNORMAL FINDING OF LUNG FIELD (2) Acute CHF Code(s): I50.9 - HEART FAILURE, UNSPECIFIED (3) CHF (congestive heart failure) Code(s): I50.9 - HEART FAILURE, UNSPECIFIED Qualifiers: Heart failure type: unspecified Heart failure chronicity: unspecified Qualified Code(s): I50.9 - Heart failure, unspecified (4) Crohn's disease Code(s): K50.90 - CROHN'S DISEASE, UNSPECIFIED, WITHOUT COMPLICATIONS (5) Elevated d-dimer Code(s): R79.89 - OTHER SPECIFIED ABNORMAL FINDINGS OF BLOOD CHEMISTRY (6) Leg swelling Code(s): M79.89 - OTHER SPECIFIED SOFT TISSUE DISORDERS (7) Pneumonia Code(s): J18.9 - PNEUMONIA, UNSPECIFIED ORGANISM Qualifiers: Pneumonia type: due to unspecified organism Laterality: left Lung location: lower lobe of lung Qualified Code(s): J18.1 - Lobar pneumonia, unspecified organism 8 CARDIOMYPATHY Assessment/Plan Lasix O2 as needed to maintain saturation AC Cardiac cath being arranged by Cardiology DR ROGERS
--- NOTE | 2018-04-25 14:34 | PN ---
Physical Exam: SUBJECTIVE: Patient seen and examined at the bedside. at bedside. No overnight events, states he is comfortable at rest. only short of breath with ambulation. constipation resolved. OBJECTIVE: daily weights improving 77->69kg on supplemental oxygen prn tolerating room air Vital Signs Period Temp Pulse Resp BP Sys/Hobbs Pulse Ox Last 24 Hr 97.8 F-98.2 F 72-85 18-20 96-123/48-71 94 GENERAL: The patient is awake, alert, and fully oriented, in no acute distress. HEAD: Normal with no signs of trauma. EYES: PERRL, extraocular movements intact, sclera anicteric, conjunctiva clear. No ptosis. ENT: Ears normal, nares patent, oropharynx clear without exudates, moist mucous membranes. NECK: Trachea midline, full range of motion, supple. LUNGS: Breath sounds equal, clear to auscultation bilaterally HEART: Regular rate and rhythm ABDOMEN: Soft, nontender, nondistended, normoactive bowel sounds, EXTREMITIES: +2 bilateral lower ext edema. NEUROLOGICAL: Normal speech, gait not observed. PSYCH: Normal mood, normal affect. SKIN: Warm, dry, normal turgor, no rashes or lesions noted Laboratory Results - last 24 hr 04/25/18 04/25/18 04/25/18 06:00 06:00 06:00 WBC 6.9 RBC 4.32 Hgb 12.9 Hct 38.9 MCV 90.1 MCH 29.9 MCHC 33.2 RDW 15.5 Plt Count 246 MPV 11.3 H Absolute Neuts (auto) 4.6 Total Counted Neutrophils % 66.3 Neutrophils % (Manual) Band Neutrophils % Lymphocytes % 18.0 D Lymphocytes % (Manual) Monocytes % 10.3 H Monocytes % (Manual) Eosinophils % 4.8 H D Eosinophils % (Manual) Basophils % 0.6 Basophils % (Manual) Myelocytes % (Man) Promyelocytes % (Man) Blast Cells % (Manual) Nucleated RBC % 0 Metamyelocytes Differential Comment Hypersegmented Neuts Plasma Cells Smudge Cells Other Cell Type Hypochromia Toxic Granulation Dohle Bodies Platelet Estimate Polychromasia Poikilocytosis Basophilic Stippling Anisocytosis Microcytosis Macrocytosis Spherocytes Siderocytes Sickle Cells Target Cells Tear Drop Cells Ovalocytes Stomatocytes Helmet Cells Koch-Petal Bodies [place] Rings [place] Cells Acanthocytes (Spur) Rouleaux Fragmented RBCs Schistocytes PTT (Actin FS) 73.3 H Sodium 141 Potassium 3.5 Chloride 103 Carbon Dioxide 27 Anion Gap 10 BUN 21 H Creatinine 1.4 H Creat Clearance w eGFR 49.82 Random Glucose 85 Calcium 7.9 L Magnesium 2.0 Total Bilirubin 0.8 AST 26 ALT 42 Alkaline Phosphatase 70 Total Protein 5.6 L Albumin 2.7 L 04/25/18 06:25 WBC 7.0 RBC 4.31 Hgb 12.5 Hct 38.8 MCV 89.9 MCH 29.0 MCHC 32.3 RDW 15.1 Plt Count 236 MPV 10.4 Absolute Neuts (auto) Total Counted Cancelled Neutrophils % Neutrophils % (Manual) Cancelled Band Neutrophils % Cancelled Lymphocytes % Lymphocytes % (Manual) Cancelled Monocytes % Monocytes % (Manual) Cancelled Eosinophils % Eosinophils % (Manual) Cancelled Basophils % Basophils % (Manual) Cancelled Myelocytes % (Man) Cancelled Promyelocytes % (Man) Cancelled Blast Cells % (Manual) Cancelled Nucleated RBC % Cancelled Metamyelocytes Cancelled Differential Comment Cancelled Hypersegmented Neuts Cancelled Plasma Cells Cancelled Smudge Cells Cancelled Other Cell Type Cancelled Hypochromia Cancelled Toxic Granulation Cancelled Dohle Bodies Cancelled Platelet Estimate Cancelled Polychromasia Cancelled Poikilocytosis Cancelled Basophilic Stippling Cancelled Anisocytosis Cancelled Microcytosis Cancelled Macrocytosis Cancelled Spherocytes Cancelled Siderocytes Cancelled Sickle Cells Cancelled Target Cells Cancelled Tear Drop Cells Cancelled Ovalocytes Cancelled Stomatocytes Cancelled Helmet Cells Cancelled Koch-Petal Bodies Cancelled [place] Rings Cancelled [place] Cells Cancelled Acanthocytes (Spur) Cancelled Rouleaux Cancelled Fragmented RBCs Cancelled Schistocytes Cancelled PTT (Actin FS) Sodium Potassium Chloride Carbon Dioxide Anion Gap BUN Creatinine Creat Clearance w eGFR Random Glucose Calcium Magnesium Total Bilirubin AST ALT Alkaline Phosphatase Total Protein Albumin Active Medications Generic Name Dose Route Start Last Admin Trade Name Freq PRN Reason Stop Dose Admin Calcium Carbonate/Cholecalciferol 1 tab 04/24/18 10:00 04/25/18 10:28 Os-Joao 500+D - PO 1 tab DAILY [facility] Administration Carvedilol 6.25 mg 04/25/18 22:00 Coreg - PO BID [facility] Cyanocobalamin 1,000 mcg 04/24/18 10:00 04/25/18 10:28 Vitamin B12 - PO 1,000 mcg DAILY [facility] Administration Famotidine 20 mg 04/24/18 18:00 Pepcid - PO DAILY@1800 [facility] Furosemide 40 mg 04/26/18 10:00 Lasix - PO DAILY [facility] Heparin Sodium (Porcine) 1,000 unit 04/23/18 18:09 Heparin - IVPUSH PRN PRN Heparin Heparin Sodium (Porcine) 5,000 unit 04/23/18 18:09 Heparin - IVPUSH PRN PRN Heparin Heparin Sodium/Dextrose 25,000 units in 500 mls @ 23.04 mls/hr 04/23/18 16:45 04/25/18 06:46 Heparin Infusion - IVPB 1,152 units/hr TITR [facility] 23.04 mls/hr Administration Protocol 1,152 UNITS/HR Lisinopril 5 mg 04/26/18 10:00 Prinivil PO DAILY [facility] Loratadine 10 mg 04/24/18 10:00 04/25/18 10:28 Claritin - PO 10 mg DAILY [facility] Administration Spironolactone 25 mg 04/24/18 10:00 04/25/18 10:32 Aldactone - PO 25 mg DAILY [facility] Administration ASSESSMENT/PLAN: Imaging: Echo: LV severely reduced; severe global, apical, apical septal wall, apical lateral wall, apical anterior wall akinesis; cannot r/o thrombi; RV moderately reduced; BLAE; severe MR; moderate TR; moderae AI; pleural effusion Chest CT: moderate bilateral pleural effusions ASSESSMENT/PLAN: Patient is a 72 year old male with a significant past medical history of crohn' s disease, chronic anemia, GERD and left arm melanoma. He denies any other medical history. Patient admitted for increased shortness of breath, bilateral lower ext edema and dyspnea with physical activity. ------- problem list Severe decompensated biventricular systolic heart failure Possible bilateral pneumonia Crohns disease Possible cardiac thrombus seen on echo GERD Osteoporosos ------ On Lasix 40mg PO On heparin drip On Lisinopril 5mg, coreq 6.25 mg bid Daily ASA Monitor magnesium, K levels (k 3.5, given k 20meq x 1 to maintain >4.) Tele monitoring Daily weights transfer to cardiac cath tomorrow likely pending bed. full code Visit type - Emergency Visit Emergency Visit: Yes ED Registration Date: 04/22/18 Care time: The patient presented to the Emergency Department on the above date and was hospitalized for further evaluation of their emergent condition. - New Patient This patient is new to me today: No - Critical Care Critical Care patient: No - Discharge Referral Referred to [facility] Med [facility] No
[2018-04-25] MEDS: RANITIDINE HCL 150 MG TABLET (FP) PO SCH (17:26)
[2018-04-25] MEDS: CARVEDILOL 6.25 MG TABLET (FP) PO SCH (21:35)
[2018-04-26 07:37] LABS: BASO % 0.7 % (0-2.0); EOS % 5.5 % (0-4.5); HEMATOCRIT 34.9 % (35.4-49); HEMOGLOBIN 11.2 GM/dL (11.7-16.9); LYMPH % 20.7 % (8-40); MCH 29.2 pg (25.7-33.7); MCHC 32.1 g/dl (32.0-35.9); MEAN CELL VOLUME 90.8 fl (80-96); MONO % 10.6 % (3.8-10.2); NEUT % 62.5 % (42.8-82.8); PLATELET COUNT 202 K/MM3 (134-434); RBC 3.84 M/mm3 (4.00-5.60); WHITE BLOOD COUNT 6.3 K/mm3 (4.0-10.0)
--- NOTE | 2018-04-26 07:53 | DS ---
Physical Exam: SUBJECTIVE: Patient seen and examined at the bedside. for transfer to [facility] pending bed availability. OBJECTIVE: had 3 bouts of diarrhea today. preliminary reports negative for c diff. daily weights improving 77->69kg on supplemental oxygen prn tolerating room air Vital Signs Period Temp Pulse Resp BP Sys/Hobbs Pulse Ox Last 24 Hr 97.5 F-98.2 F 73-81 18-20 91-108/48-70 95 PHYSICAL EXAM GENERAL: The patient is awake, alert, and fully oriented, in no acute distress. HEAD: Normal with no signs of trauma. EYES: PERRL, extraocular movements intact, sclera anicteric, conjunctiva clear. ENT: Ears normal, nares patent, oropharynx clear without exudates, moist mucous membranes. NECK: Trachea midline, full range of motion, supple. LUNGS: Breath sounds equal, clear to auscultation bilaterally, no wheezes, no crackles, no accessory muscle use. HEART: Regular rate and rhythm, S1, S2 without murmur, rub or gallop. ABDOMEN: Soft, nontender, nondistended, normoactive bowel sounds, no guarding, no rebound, no hepatosplenomegaly, no masses. EXTREMITIES: 2+ pulses, warm, well-perfused, no edema. NEUROLOGICAL: Cranial nerves II through XII grossly intact. Normal speech, gait not observed. PSYCH: Normal mood, normal affect. SKIN: Warm, dry, normal turgor, no rashes or lesions noted. LABS Laboratory Results - last 24 hr 04/25/18 04/25/18 04/25/18 06:00 06:00 06:00 WBC 6.9 RBC 4.32 Hgb 12.9 Hct 38.9 MCV 90.1 MCH 29.9 MCHC 33.2 RDW 15.5 Plt Count 246 MPV 11.3 H Absolute Neuts (auto) 4.6 Total Counted Neutrophils % 66.3 Neutrophils % (Manual) Band Neutrophils % Lymphocytes % 18.0 D Lymphocytes % (Manual) Monocytes % 10.3 H Monocytes % (Manual) Eosinophils % 4.8 H D Eosinophils % (Manual) Basophils % 0.6 Basophils % (Manual) Myelocytes % (Man) Promyelocytes % (Man) Blast Cells % (Manual) Nucleated RBC % 0 Metamyelocytes Differential Comment Hypersegmented Neuts Plasma Cells Smudge Cells Other Cell Type Hypochromia Toxic Granulation Dohle Bodies Platelet Estimate Polychromasia Poikilocytosis Basophilic Stippling Anisocytosis Microcytosis Macrocytosis Spherocytes Siderocytes Sickle Cells Target Cells Tear Drop Cells Ovalocytes Stomatocytes Helmet Cells Koch-Geddes Bodies Barney Rings [place] Cells Acanthocytes (Spur) Rouleaux Fragmented RBCs Schistocytes PTT (Actin FS) 73.3 H Sodium 141 Potassium 3.5 Chloride 103 Carbon Dioxide 27 Anion Gap 10 BUN 21 H Creatinine 1.4 H Creat Clearance w eGFR 49.82 Random Glucose 85 Calcium 7.9 L Magnesium 2.0 Total Bilirubin 0.8 AST 26 ALT 42 Alkaline Phosphatase 70 Total Protein 5.6 L Albumin 2.7 L 04/25/18 04/26/18 06:25 06:10 WBC 6.3 RBC 3.84 L Hgb 11.2 L Hct 34.9 L MCV 90.8 MCH 29.2 MCHC 32.1 RDW 15.0 Plt Count 202 MPV 11.0 Absolute Neuts (auto) 4.0 Total Counted Cancelled Neutrophils % 62.5 Neutrophils % (Manual) Cancelled Band Neutrophils % Cancelled Lymphocytes % 20.7 Lymphocytes % (Manual) Cancelled Monocytes % 10.6 H Monocytes % (Manual) Cancelled Eosinophils % 5.5 H Eosinophils % (Manual) Cancelled Basophils % 0.7 Basophils % (Manual) Cancelled Myelocytes % (Man) Cancelled Promyelocytes % (Man) Cancelled Blast Cells % (Manual) Cancelled Nucleated RBC % Cancelled 0 Metamyelocytes Cancelled Differential Comment Cancelled Hypersegmented Neuts Cancelled Plasma Cells Cancelled Smudge Cells Cancelled Other Cell Type Cancelled Hypochromia Cancelled Toxic Granulation Cancelled Dohle Bodies Cancelled Platelet Estimate Cancelled Polychromasia Cancelled Poikilocytosis Cancelled Basophilic Stippling Cancelled Anisocytosis Cancelled Microcytosis Cancelled Macrocytosis Cancelled Spherocytes Cancelled Siderocytes Cancelled Sickle Cells Cancelled Target Cells Cancelled Tear Drop Cells Cancelled Ovalocytes Cancelled Stomatocytes Cancelled Helmet Cells Cancelled Koch-Geddes Bodies Cancelled Barney Rings Cancelled Haley Cells Cancelled Acanthocytes (Spur) Cancelled Rouleaux Cancelled Fragmented RBCs Cancelled Schistocytes Cancelled PTT (Actin FS) Sodium Potassium Chloride Carbon Dioxide Anion Gap BUN Creatinine Creat Clearance w eGFR Random Glucose Calcium Magnesium Total Bilirubin AST ALT Alkaline Phosphatase Total Protein Albumin HOSPITAL COURSE: Date of Admission:04/22/18 Date of Discharge: 04/26/18 Imaging: Echo: LV severely reduced; severe global, apical, apical septal wall, apical lateral wall, apical anterior wall akinesis; cannot r/o thrombi; RV moderately reduced; BLAE; severe MR; moderate TR; moderae AI; pleural effusion Chest CT: moderate bilateral pleural effusions ASSESSMENT/PLAN: Patient is a 72 year old male with a significant past medical history of crohn' s disease, chronic anemia, GERD and left arm melanoma. He denies any other medical history. Patient admitted for increased shortness of breath, bilateral lower ext edema and dyspnea with physical activity. ------- problem list Severe decompensated biventricular systolic heart failure Possible bilateral pneumonia Crohns disease Possible cardiac thrombus seen on echo GERD Osteoporosis ------ On Lasix 40mg PO On heparin drip for possible thrombus on echo On Lisinopril 5mg, coreq 6.25 mg bid Daily ASA Monitor magnesium, K levels Tele monitoring Daily weights transfer to cardiac cath @ [facility] pending bed. full code Minutes to complete discharge: 60 Discharge Summary Reason For Visit: PNEUMONIA,CHF Current Active Problems Abnormality of lung on chest x-ray (Acute) Acute CHF (Acute) Acute anxiety (Acute) Acute on chronic systolic (congestive) heart failure (Acute) CHF (congestive heart failure) (Acute) Crohn's disease (Acute) Elevated d-dimer (Acute) Hypomagnesemia (Acute) Leg swelling (Acute) Pneumonia (Acute) Condition: Guarded - Instructions Diet, Activity, Other Instructions: transfer to cardiac cath at [facility] Referrals: Michael Stroud MD [Primary Care Provider] - Disposition: TRANSFER ACUTE CARE/OTHER HOSP - Home Medications Comprehensive Discharge Medication List: Ambulatory Orders Calcium [Natural Calcium] 1,200 mg PO DAILY 01/05/15 Cholecalciferol (Vitamin D3) [Vitamin D3] 3,000 unit PO DAILY 01/05/15 Famotidine [Pepcid] 40 mg PO DAILY 01/05/15 Loratadine [Claritin -] 10 mg PO DAILY 01/05/15 Cyanocobalamin [Vitamin B12 -] 1,000 mcg PO DAILY 04/12/16 Calcium 500Mg/Vit-D 200 Units [Os-Joao 500+D -] 1 tab PO DAILY tab 04/25/18 Carvedilol [Coreg -] 6.25 mg PO BID tablet 04/25/18 Furosemide [Lasix -] 40 mg PO DAILY tablet 04/25/18 Heparin - 1,000 unit IVPUSH PRN PRN vial 04/25/18 Heparin - 5,000 unit IVPUSH PRN PRN vial 04/25/18 Lisinopril [Prinivil] 5 mg PO DAILY tablet 04/25/18 Ranitidine [Zantac -] 150 mg PO DAILY@1800 tablet 04/25/18 Spironolactone [Aldactone -] 25 mg PO DAILY tablet 04/25/18 This patient is new to me today: No Emergency Visit: Yes ED Registration Date: 04/22/18 Care time: The patient presented to the Emergency Department on the above date and was hospitalized for further evaluation of their emergent condition. Critical Care patient: No - Discharge Referral Referred to [facility] Med P.C.: No
[2018-04-26 08:00] LABS: ALBUMIN 2.4 g/dl (3.4-5.0); ALK PHOS 59 U/L (45-117); ANION GAP 10 MMOL/L (8-16); BILIRUBIN,TOTAL 0.6 mg/dL (0.2-1); BLOOD UREA NITROGEN 21 mg/dL (7-18); CALCIUM 7.9 mg/dL (8.5-10.1); CHLORIDE 104 mmol/L (98-107); CO2 27 mmol/L (21-32); CREATININE 1.4 mg/dL (0.55-1.3); GLUCOSE,RANDOM 80 mg/dL (74-106); SGOT/AST 23 U/L (15-37); SGPT/ALT 34 U/L (13-61); SODIUM 140 mmol/L (136-145); TOT PROT 4.9 g/dl (6.4-8.2)
[2018-04-26] MEDS ORDERED: PT OWN MED DRAWER 7, Y5N ONE ×2 (09:52)
[2018-04-26] MEDS ORDERED: FUROSEMIDE 40 MG TABLET (FP) PO SCH (10:00)
[2018-04-26] MEDS: CYANOCOBALAMIN 1,000 MCG TABLET (FP) PO SCH (10:00)
[2018-04-26] MEDS: CALCIUM 500MG/VIT-D 200 UNITS COMBO TABLET (FP) PO SCH (10:00)
[2018-04-26] MEDS ORDERED: LISINOPRIL 5 MG TABLET (FP) PO SCH (10:00)
[2018-04-26] MEDS: LORATADINE 10 MG TABLET PO SCH (10:00)
[2018-04-26] MEDS: SPIRONOLACTONE 25 MG TABLET (FP) PO SCH (10:30)
--- NOTE | 2018-04-26 10:34 | PN ---
Progress Note, Physician History of Present Illness: PULMONARY ALERT,NO DISTRESS,-CP,-SOB. PT TO TRANSFERRED TO [facility] FOR CARDIAC CATH - Current Medication List Current Medications: Active Medications Calcium Carbonate/Cholecalciferol (Os-Joao 500+D -) 1 tab PO DAILY [facility] Last Admin: 04/26/18 10:00 Dose: 1 tab Carvedilol (Coreg -) 6.25 mg PO BID [facility] Last Admin: 04/25/18 21:35 Dose: 6.25 mg Cyanocobalamin (Vitamin B12 -) 1,000 mcg PO DAILY [facility] Last Admin: 04/26/18 10:00 Dose: 1,000 mcg Furosemide (Lasix -) 40 mg PO DAILY [facility] Last Admin: 04/26/18 10:00 Dose: 40 mg Heparin Sodium (Porcine) (Heparin -) 1,000 unit IVPUSH PRN PRN PRN Reason: Heparin Heparin Sodium (Porcine) (Heparin -) 5,000 unit IVPUSH PRN PRN PRN Reason: Heparin Heparin Sodium/Dextrose (Heparin Infusion -) 25,000 units in 500 mls @ 23.04 mls/hr IVPB TITR [facility]; Protocol Last Admin: 04/25/18 17:28 Dose: 1,152 units/hr, 23.04 mls/hr Lisinopril (Prinivil) 5 mg PO DAILY [facility] Loratadine (Claritin -) 10 mg PO DAILY [facility] Last Admin: 04/26/18 10:00 Dose: 10 mg Ranitidine HCl (Zantac -) 150 mg PO DAILY@1800 [facility] Last Admin: 04/25/18 17:26 Dose: 150 mg Spironolactone (Aldactone -) 25 mg PO DAILY [facility] Last Admin: 04/25/18 10:32 Dose: 25 mg - Objective Vital Signs: Vital Signs Temperature 97.9 F 04/26/18 05:40 Pulse Rate 81 04/26/18 05:40 Respiratory Rate 18 04/26/18 05:40 Blood Pressure 108/70 04/26/18 05:40 O2 Sat by Pulse Oximetry (%) 95 04/25/18 21:00 Constitutional: Yes: Well Nourished, Calm Eyes: Yes: WNL HENT: Yes: WNL Neck: Yes: WNL, Tenderness Cardiovascular: Yes: S1, S2 Respiratory: Yes: CTA Bilaterally Gastrointestinal: Yes: Normal Bowel Sounds, Soft Extremities: Yes: WNL Edema: No Labs: CBC, BMP 04/26/18 06:10 04/26/18 06:10 INR, PTT INR 1.21 (0.82-1.09) 04/22/18 17:30 Assessment/Plan Problem List - Problems (1) Abnormality of lung on chest x-ray Code(s): R91.8 - OTHER NONSPECIFIC ABNORMAL FINDING OF LUNG FIELD (2) Acute CHF Code(s): I50.9 - HEART FAILURE, UNSPECIFIED (3) CHF (congestive heart failure) Code(s): I50.9 - HEART FAILURE, UNSPECIFIED Qualifiers: Heart failure type: unspecified Heart failure chronicity: unspecified Qualified Code(s): I50.9 - Heart failure, unspecified (4) Crohn's disease Code(s): K50.90 - CROHN'S DISEASE, UNSPECIFIED, WITHOUT COMPLICATIONS (5) Elevated d-dimer Code(s): R79.89 - OTHER SPECIFIED ABNORMAL FINDINGS OF BLOOD CHEMISTRY (6) Leg swelling Code(s): M79.89 - OTHER SPECIFIED SOFT TISSUE DISORDERS (7) Pneumonia Code(s): J18.9 - PNEUMONIA, UNSPECIFIED ORGANISM Qualifiers: Pneumonia type: due to unspecified organism Laterality: left Lung location: lower lobe of lung Qualified Code(s): J18.1 - Lobar pneumonia, unspecified organism 8 CARDIOMYPATHY Assessment/Plan Lasix O2 as needed to maintain saturation AC Cardiac cath being arranged by Cardiology DR ROGERS
[2018-04-26] MEDS ORDERED: LACTOBACILLUS ACIDOPHILUS 1 TABLET PO SCH (11:45)
[2018-04-26] MEDS: CARVEDILOL 6.25 MG TABLET (FP) PO SCH (12:50)
[2018-04-26 14:47] VITALS: BP 104/61; PULSE 79; TEMP 98.5
[2018-04-26] MEDS ORDERED: LOPERAMIDE HCL 2 MG CAPSULE PO ONE (15:45)
[2018-04-26] MEDS: RANITIDINE HCL 150 MG TABLET (FP) PO SCH (17:07)
== END 2018-04-26 18:04 | disposition short-term general hospital (02) | DRG 314 ==
LOC: FER 17:29 → FM/S 20:15 → J4S 04-23 17:59
PROVIDERS: ADMIT Internal Medicine; ATTEND Nurse Practitioner Family
DX: I42.8 Other cardiomyopathies (principal); I50.23 Acute on chronic systolic (congestive) heart failure; J18.1 Lobar pneumonia, unspecified organism; K50.90 Crohn's disease, unspecified, without complications; J98.11 Atelectasis; K21.9 Gastro-esophageal reflux disease without esophagitis; D64.9 Anemia, unspecified; M81.0 Age-related osteoporosis without current pathological fracture; I45.10 Unspecified right bundle-branch block; Z88.0 Allergy status to penicillin; E83.42 Hypomagnesemia; F41.9 Anxiety disorder, unspecified; R19.7 Diarrhea, unspecified; C43.9 Malignant melanoma of skin, unspecified; R91.8 Other nonspecific abnormal finding of lung field
CPT/HCPCS: 36415; 71046-TC-FY; 71275-TC; 80048; 80053; 80061; 81003; 82550; 82553; 83721; 83735; 83880; 84484; 85025; 85027; 85379; 85610; 85730; 86480; 87040; 87086; 87324; 87449; 87899; 93005; 93306-TC; 93970-TC; 99285-25; J1644

== ENCOUNTER 2023-07-18 07:30 | Day surgery (SDC) | payer OTHER, MEDICARE ==
[2023-07-12 15:59] VITALS: BMI 22.7
[2023-07-18] MEDS ORDERED: PROPOFOL 80 ML ONE (07:53)
[2023-07-18] MEDS ORDERED: LIDOCAINE HCL/PF 2% SDV 5ML VIAL ONE (07:53)
[2023-07-18] MEDS ORDERED: ETOMIDATE 20 MG/10 ML VIAL IVPUSH ONE (08:09)
[2023-07-18 09:14] VITALS: RESP 20; TEMP 97.8
[2023-07-18 09:27] VITALS: BP 115/57; PULSE 77
== END 2023-07-18 09:29 | disposition home or self-care (01) ==
LOC: FASU-ENDO 07:30
PROVIDERS: ATTEND Internal Medicine Gastroenterology
PROC: 0DBL8ZX Excision of Transverse Colon, Via Natural or Artificial Opening Endoscopic, Diagnostic (ICD-10-PCS; 2023-07-18)
PROC: 0DBC8ZX Excision of Ileocecal Valve, Via Natural or Artificial Opening Endoscopic, Diagnostic (ICD-10-PCS; principal; 2023-07-18 08:10)
DX: Z12.11 Encounter for screening for malignant neoplasm of colon (principal); N30.90 Cystitis, unspecified without hematuria; Z87.19 Personal history of other diseases of the digestive system
CPT/HCPCS: 88305-TC